=== PATIENT | female | born 1985 | race Caucasian/White ===

== ENCOUNTER → 2018-09-30 13:43 | Outpatient (CLI) | payer OTHER, SELFPAY ==
[2018-09-30 15:33] LABS: Absolute Lymphocyte Count 2.11 X10^3/ul (0.83-4.51); Absolute Neutrophil Count 7.9 X10^3/uL (2.0-7.7); Basophil# 0.04 X10^3/uL; Basophil% 0.4 % (0-1); Eosinophil# 0.49 X10^3/uL; Eosinophils% 4.4 % (0-5); Hematocrit 40.7 % (37-47); Hemoglobin 13.1 g/dl (12.0-15.0); Lymphocyte # 2.11 X10^3/ul (4.0); Lymphocyte % 18.8 % (19-41); Mean Corp Hgb Conc 32.2 g/gl (32-36); Mean Corpuscular Hgb 29.1 pg (27.0-32.0); Mean Corpuscular Volume 90.4 fL (81-99); Monocyte% 6.2 % (0-10); Neutrophil # 7.87 X10^3/uL (2.7-7.7); Neutrophil % 69.8 % (47-70); Platelet Count 365 K/mm3 (150-450); RBC Distribution Width CV 12.8 % (11.6-14.6); RBC Distribution Width SD 41.6 fl (35.1-43.9); White Blood Count 11.3 K/mm3 (4.4-11.0)
[2018-09-30 15:38] LABS: POSITIVE COUNT NO; POSITIVE DIFFERENTIAL NO; POSITIVE MORPHOLOGY NO
[2018-09-30 15:58] LABS: Vitamin D,25 Hydroxy 28.7 ng/mL (29.95-100.01)
[2018-09-30 16:00] LABS: Anion Gap 10 (5-15); BUN 14 mg/dL (7-18); BUN/Creat Ratio 16.6 RATIO (10-20); Calcium,Total 8.8 mg/dL (8.5-10.1); Chloride 102 mmol/L (98-107); Creatinine, Serum 0.84 mg/dL (0.55-1.02); EST Glomerular Filtration Rate 84 mL/min (>60); Est Glom Filt Rate - Afr Amer 101 mL/min (>60); Glucose 124 mg/dL (74-106); Potassium 3.8 mmol/L (3.5-5.1); Sodium Level 139 mmol/L (136-145); Thyroid Stim Hormone (TSH) 1.57 uIU/mL (0.358-3.74)
--- OUTSIDE RECORDS SUMMARY | 2018-11-25 13:07 | XMS RPT_ITS ---
:1985 Author Organization OHIP Care Team Providers Name Role Phone Toñito Levy Attending Unavailable Toñito Levy Primary Care Unavailable PROBLEMS PROBLEMS DATE TYPE CONDITION / CODE ATTENDING STATUS SOURCE 09/30/2018 Unknown R53.83 - Other Toñito Levy Active [place] fatigue / Community R53.83(ICD-10) Hospital Repository PROCEDURES PROCEDURES No Procedure Records FoundRESULTS RESULTS CBC W/DIFF, AUTOMATED Collected: 09/30/2018 Status: F Source: [place] 1:47 PM [facility] REPOSITORY TYPE CODE TESTS RESULT OUT OF RANGE REFERENCE UNITS LAB L100.1000 4.4-11.0 K/mm3 High WBC 11.3 LAB L100.1200 4.2-5.4 M/mm3 Normal RBC 4.50 LAB L100.1300 12.0-15.0 g/dl Normal HGB 13.1 LAB L100.1400 37-47 % Normal HCT 40.7 LAB L100.1500 81-99 fL Normal MCV 90.4 LAB L100.1600 27.0-32.0 pg Normal MCH 29.1 LAB L100.1700 32-36 g/gl Normal MCHC 32.2 LAB L100.1810 11.6-14.6 % Normal RDW CV 12.8 LAB L100.1820 35.1-43.9 fl Normal RDW SD 41.6 LAB L100.1900 150-450 K/mm3 Normal PLT 365 LAB L100.2000 6.2-12.0 fl Normal MPV 10.0 LAB L100.2100 47-70 % Normal NEUT% 69.8 LAB L100.2200 19-41 % Low LY% 18.8 LAB L100.2300 0-10 % Normal MONO% 6.2 LAB L100.2400 0-5 % Normal EO% 4.4 LAB L100.2500 0-1 % Normal BASO% 0.4 LAB L100.2550 0.0-0.9 % Normal IM GRAN % 0.400 Result Comment: IG% - Immature Granulocytes (promyelocytes, myelocytes and metamyelocytes) > 1% indicates that a LEFT SHIFT is Present. LAB L100.2620 2.0-7.7 X10 3/uL High Absolute Neut 7.9 LAB L100.2720 0.83-4.51 X10 3/ul Normal Absolute Lymph 2.11 Performed By: #### L100.0100, L506.1000, L500.2500, L501.9520 #### [facility] [address] [place], [place], [address] VITAMIN D,25 HYDROXY Collected: 09/30/2018 Status: F Source: [place] 1:47 PM [facility] REPOSITORY TYPE CODE TESTS RESULT OUT OF REFERENCE UNITS RANGE LAB L506.1000 29.95-100.01 ng/mL Low Vitamin D 28.7 25-OH Result Comment: Vitamin D 25(OH) Status Range Deficiency <20 ng/mL (50nmol/L) Insuffciency 20 - 30 ng/mL (50 - 75 nmol/L) Sufficiency 30 - 100 ng/mL (75 - 250 nmol/L) Toxicity >100 ng/mL (>250 nmol/L) Performed By: #### L100.0100, L506.1000, L500.2500, L501.9520 #### [facility] [address] [place], [place], [address] BASIC METABOLIC Collected: 09/30/2018 Status: F Source: [place] PROFILE (BMP) 1:47 PM [facility] REPOSITORY TYPE CODE TESTS RESULT OUT OF RANGE REFERENCE UNITS LAB L501.0100 74-106 mg/dL High GLU 124 Result Comment: Fasting Glucose result from 100 to 125 mg/dL suggests IMPAIRED HOMEOSTASIS per A.D.A. criteria. Please note revised GLUCOSE reference range effective 2017. LAB L501.1000 7-18 mg/dL Normal BUN 14 LAB L501.1100 0.55-1.02 mg/dL Normal CREAT,SERUM 0.84 Result Comment: The validity of the calculated GFR AND GFRAA in patients over 70 years has not been determined. Clinical correlation is essential. LAB L501.1110 >60 mL/min Normal EST GFR 84 Result Comment: Non- GFR Calc LAB L501.1115 >60 mL/min Normal EST GFR - AA 101 Result Comment: GFR Calc LAB L501.1300 10-20 RATIO Normal BUN/CRE 16.6 LAB L501.2200 8.5-10.1 mg/dL CA Normal 8.8 LAB L501.5300 136-145 mmol/L NA Normal 139 LAB L501.5600 3.5-5.1 mmol/L K Normal 3.8 LAB L501.5900 98-107 mmol/L CL Normal 102 LAB L501.6100 21.0-32.0 mmol/L Normal CO2 27.0 LAB L501.6200 5-15 Normal GAP 10 Performed By: #### L100.0100, L506.1000, L500.2500, L501.9520 #### [facility] [address] [facility] [place], [place], [address] THYROID STIM HORMONE Collected: 09/30/2018 Status: F Source: [place] (TSH) 1:47 PM [facility] REPOSITORY TYPE CODE TESTS RESULT OUT OF RANGE REFERENCE UNITS LAB L501.9520 0.358-3.74 uIU/mL Normal TSH 1.57 Performed By: #### L100.0100, L506.1000, L500.2500, L501.9520 #### [facility] [address] [facility] [place], [address] ALLERGIES ALLERGIES DATE TYPE / CODE NAME / CODE REACTION SEVERITY SOURCE 01/18/2017 Drug Sulfa Rash Unknown [facility] Allergy/4160 (Sulfonamide [facility] 12452(SNOMED Antibiotics)/ Repository CT) [id number](RX NORM) 01/18/2017 Drug amoxicillin/F Rash Unknown [facility] Allergy/4160 [id number](RXN [facility] 93749(SNOMED ORM) Repository CT) ENCOUNTERS ENCOUNTERS ADMIT/DISCHARGE ACCOUNT ADMITTING ENCOUNTER LOCATION SOURCE NUMBER CLASS 09/30/2018 [id number] Ambulatory [place] 1 [facility] ing:MFPLAB Repository PAYERS PAYERS ENCOUNTER GUARANTOR PAYER SUBSCRIBER SOURCE 09/30/2018 MICHAEL [id number] [place] Insurance:OLMANLTCAREDominic BLACKWOODPDOB: [place], [place] Number: [id number] [address]Zhi: (953) [id number] Repository [phone] () e Date:2446-07-48CL [address] [place] [phone]: 09/30/2018 Secondary NOT GIVENUNK [place] Insurance:SELF PAY [facility] Number: Effective Repository Date:2018-09-30
== END ==
PROVIDERS: Family Provider Family Medicine; PCP Family Medicine; Visit Provider Family Medicine
DX: R53.83 Other fatigue (principal)
CPT/HCPCS: 36415; 80048; 82306; 84443; 85025

== ENCOUNTER → 2019-02-22 | Outpatient (CLI) | payer OTHER, SELFPAY ==
[2017-01-18 06:11] VITALS: BMI 41.8
== END | disposition home or self-care (01) ==
PROVIDERS: Family Provider Family Medicine; PCP Family Medicine; Referring Provider Nurse Practitioner Family; Visit Provider Nurse Practitioner Family
DX: R39.15 Urgency of urination (principal)
CPT/HCPCS: 87086; 87088; 87186

== ENCOUNTER → 2019-06-26 | Outpatient (CLI) | payer OTHER, SELFPAY ==
[2019-06-26 08:00] VITALS: BMI 41.8
[2019-06-26 09:04] LABS: Thyroid Stim Hormone (TSH) 4.52 uIU/mL (0.358-3.74)
== END | disposition home or self-care (01) ==
LOC: PAVLAB 08:20
PROVIDERS: Family Provider Family Medicine; PCP Family Medicine; Referring Provider Nurse Practitioner Women's Health; Visit Provider Nurse Practitioner Women's Health
DX: N92.6 Irregular menstruation, unspecified (principal)
CPT/HCPCS: 36415; 84443

== ENCOUNTER → 2019-07-10 | Outpatient (CLI) | payer OTHER, SELFPAY ==
[2019-06-26 08:00] VITALS: BMI 41.8
[2019-07-10 10:36] LABS: T4 Free Direct 0.98 ng/dL (0.76-1.46); Thyroid Stim Hormone (TSH) 3.98 uIU/mL (0.358-3.74)
== END | disposition home or self-care (01) ==
LOC: MFPLAB 08:01
PROVIDERS: Family Provider Family Medicine; PCP Family Medicine; Referring Provider Family Medicine; Visit Provider Family Medicine
DX: R79.89 Other specified abnormal findings of blood chemistry (principal)
CPT/HCPCS: 36415; 84439; 84443

== ENCOUNTER → 2019-07-12 | Outpatient (CLI) | payer OTHER, SELFPAY ==
[2019-06-26 08:00] VITALS: BMI 41.8
--- NOTE | 2019-07-12 | IMM_PTH ---
PATIENT: MICHAEL SORENSON LOC: [facility] U#:[id number] AGE/SX: 33/F ROOM: RE07/12/[address]: Dr. Toñito Levy MD : 1985 BED: DIS: 07/12/2019 SPEC #: [id number] RECD: 07/13/19 11:38 STATUS: HANNAH REQ #: [id number] CHRIS: 07/12/19 00:[address]: Toñito Levy DEPT: IMMUNOHISTOCHEMISTRY RECD BY: Jill Rubio Tissues: Skin of leg, NOS Procedures: CD31 (initial) CD34 (add) FACTOR VIII (add) Pankeratin (add) PHYSICIAN & INSTITUTION [place] [address] SPECIMEN INFORMATION: Tissue Source: Skin lesion right thigh Clinical Info: Vascular nevus Specimen Number: [id number] CPT code: 46638, 35950 x3 METHODOLOGY: Deparaffinized sections of prefer/formalin-fixed tissue or PAP/DQ stained slides are incubated with monoclonal/polyclonal antibodies/oligonucleotide probes. Localization is made via biotin free immunoperoxidase method. Appropriate controls are performed and reacted as expected. Results on target cell population are indicated in the following table: RESULTS: ANTIBODY / CLONE RESULT CD31 (BORA/70A) positive Factor VIII (R Ag) positive CD34 (QBEnd-10) positive AE1-3 (AE1/AE3/PCK26) negative These tests were developed and their performance characteristics determined by [facility]. They may not have been cleared or approved by the U.S. Food and Drug Administration. The FDA has determined that such clearance or approval is not necessary. INTERPRETATION: Skin lesion of right thigh, biopsy: Consistent with capillary hemangioma. AM:jason 07/13/19
--- NOTE | 2019-07-12 | LES_PTH ---
PATIENT: MICHAEL SORENSON LOC: [facility] U#:[id number] AGE/SX: 33/F ROOM: RE07/12/[address]: Dr. Toñito Levy MD : 1985 BED: DIS: 07/12/2019 SPEC #: [id number] RECD: 07/12/19 11:22 STATUS: HANNAH ARNIE #: [id number] CHRIS: 07/12/19 00:[address]: Toñito Levy DEPT: SURGICAL PATHOLOGY RECD BY: Chintan Guidry Tissues: Skin of leg, NOS Procedures: Surgery Specimen Level IV HEADER OPERATION: Excision skin lesion right thigh PRE-OP DIAGNOSIS: Vascular nevus TISSUE SUBMITTED: Skin lesion right thigh MICROSCOPIC DIAGNOSIS Skin lesion of right thigh, biopsy: Capillary hemangioma. AM:jason 07/13/19 COMMENT Immunohistochemistry ([id number]) supports the above diagnosis. MICROSCOPIC DESCRIPTION Slides are reviewed. GROSS DESCRIPTION Received is one container labeled with the patient's name and not further designated. The specimen consists of a piece of cummins-white skin measuring 0.4 x 0.3 x 0.1 cm. A brownish lesion is noted on the surface measuring 0.3 x 0.2 cm. The entire specimen is submitted in one cassette. / SJ:rg 07/12/19 TC:5 [facility]: [id number]
== END | disposition home or self-care (01) ==
LOC: LABSPEC 11:20
PROVIDERS: Family Provider Family Medicine; PCP Family Medicine; Referring Provider Family Medicine; Visit Provider Family Medicine
DX: Q82.5 Congenital non-neoplastic nevus (principal)
CPT/HCPCS: 88305; 88341; 88342

== ENCOUNTER → 2019-10-04 13:23 | Outpatient (CLI) | payer OTHER, SELFPAY ==
[2019-10-04 08:19] VITALS: BMI 41.8
[2019-10-09 20:13] LABS: HPV APTIMA, High Risk Negative (Negative)
== END ==
PROVIDERS: Family Provider Family Medicine; PCP Family Medicine; Visit Provider Nurse Practitioner Women's Health
DX: Z12.4 Encounter for screening for malignant neoplasm of cervix (principal)
CPT/HCPCS: 87624; 88175; G0145

== ENCOUNTER → 2019-11-15 06:49 | Outpatient (CLI) | payer OTHER, SELFPAY ==
[2019-10-04 08:19] VITALS: BMI 41.8
[2019-11-15 08:17] LABS: T4 Total, Thyroxin 14.3 ug/dL (4.8-13.9); Thyroid Stim Hormone (TSH) 2.15 uIU/mL (0.358-3.74)
[2019-11-15 10:06] LABS: Progesterone Level 0.03 ng/mL (See Comment)
[2019-11-17 08:08] LABS: T4 Free Direct 1.35 ng/dL (0.76-1.46)
== END ==
PROVIDERS: Family Provider Family Medicine; PCP Family Medicine; Referring Provider Nurse Practitioner Women's Health; Visit Provider Nurse Practitioner Women's Health
DX: N92.6 Irregular menstruation, unspecified (principal); R79.89 Other specified abnormal findings of blood chemistry
CPT/HCPCS: 36415; 84144; 84436; 84439; 84443

== ENCOUNTER → 2019-12-28 | Outpatient (CLI) | payer OTHER, SELFPAY ==
[2019-10-04 08:19] VITALS: BMI 41.8
[2019-12-28 08:59] LABS: Progesterone Level < 0.21 ng/mL (See Comment)
== END | disposition home or self-care (01) ==
LOC: LAB 07:04
PROVIDERS: PCP Family Medicine; Referring Provider Nurse Practitioner Women's Health; Visit Provider Nurse Practitioner Women's Health
DX: N97.9 Female infertility, unspecified (principal)
CPT/HCPCS: 36415; 84144

== ENCOUNTER → 2020-02-07 | Outpatient (CLI) | payer OTHER, SELFPAY ==
[2020-01-01 11:28] VITALS: BMI 41.8
[2020-02-07 11:17] LABS: Progesterone Level 0.86 ng/mL (See Comment)
== END | disposition home or self-care (01) ==
LOC: LAB 10:36
PROVIDERS: PCP Family Medicine; Referring Provider Nurse Practitioner Women's Health; Visit Provider Nurse Practitioner Women's Health
DX: N97.0 Female infertility associated with anovulation (principal)
CPT/HCPCS: 36415; 84144

== ENCOUNTER → 2020-03-20 08:01 | Outpatient (CLI) | payer OTHER, SELFPAY ==
[2020-01-01 11:28] VITALS: BMI 41.8
[2020-03-20 09:10] LABS: Progesterone Level 11.21 ng/mL (See Comment)
== END ==
PROVIDERS: PCP Family Medicine; Referring Provider Nurse Practitioner Women's Health; Visit Provider Nurse Practitioner Women's Health
DX: N92.6 Irregular menstruation, unspecified (principal)
CPT/HCPCS: 36415; 84144

== ENCOUNTER → 2020-04-15 07:54 | Outpatient (CLI) | payer OTHER, SELFPAY ==
[2020-01-01 11:28] VITALS: BMI 41.8
[2020-04-15 08:55] LABS: Progesterone Level 19.17 ng/mL (See Comment)
== END ==
PROVIDERS: PCP Family Medicine; Referring Provider Nurse Practitioner Women's Health; Visit Provider Nurse Practitioner Women's Health
DX: N97.0 Female infertility associated with anovulation (principal)
CPT/HCPCS: 36415; 84144

== ENCOUNTER → 2020-04-23 | Outpatient (CLI) | payer OTHER, SELFPAY ==
[2020-01-01 11:28] VITALS: BMI 41.8
[2020-04-23 10:20] LABS: Thyroid Stim Hormone (TSH) 1.92 uIU/mL (0.358-3.74)
== END | disposition home or self-care (01) ==
LOC: MFPLAB 08:23
PROVIDERS: PCP Family Medicine; Referring Provider Family Medicine; Visit Provider Family Medicine
DX: E03.9 Hypothyroidism, unspecified (principal)
CPT/HCPCS: 36415; 84443

== ENCOUNTER → 2020-07-04 | Outpatient (CLI) | payer OTHER, SELFPAY ==
[2020-01-01 11:28] VITALS: BMI 41.8
[2020-07-04 09:31] LABS: Prolactin 8.8 ng/mL; T4 Free Direct 0.91 ng/dL (0.76-1.46); Thyroid Stim Hormone (TSH) 1.44 uIU/mL (0.358-3.74)
[2020-07-04 09:41] LABS: Hemoglobin A1c 5.9 % (3.8-5.6)
[2020-07-04 09:43] LABS: Rubella IgG 166.9 IU/mL
[2020-07-05 20:07] LABS: DHEA Sulfate 66.3 ug/dL (84.8-378.0); Hemoglobin Fraction A 97.6 % (96.4-98.8); Hemoglobin Fraction A2 2.4 % (1.8-3.2); Hemoglobin Fraction C 0 % (0.0); Hemoglobin Fraction F 0 % (0.0-2.0); Hemoglobin Fraction S 0 % (0.0); Hemoglobin Solubility,Panel Negative (Negative)
[2020-07-05 20:28] LABS: V-Zoster IgG (Immunity) 1415 index (Immune >165)
[2020-07-08 08:01] LABS: 17-Hydroxyprogesterone 18 ng/dL (.)
== END | disposition home or self-care (01) ==
LOC: LAB 08:06
PROVIDERS: PCP Family Medicine; Referring Provider Psychiatry & Neurology Geriatric Psychiatry; Visit Provider Psychiatry & Neurology Geriatric Psychiatry
DX: E28.1 Androgen excess (principal)
CPT/HCPCS: 36415; 82627; 83021; 83036; 83498; 84146; 84403; 84439; 84443; 85660; 86762; 86787; 86850; 86900; 86901; 82626

== ENCOUNTER → 2020-07-18 | Outpatient (CLI) | payer OTHER, SELFPAY ==
[2020-01-01 11:28] VITALS: BMI 41.8
[2020-07-18 08:21] LABS: Glucose 75GTT - 30 minutes 175 mg/dL (100-160)
[2020-07-18 08:27] LABS: Glucose 75GTT - Fasting 121 mg/dL (70-99)
[2020-07-18 08:30] LABS: AST(SGOT) 36 U/L (15-37); Alanine Aminotransfer ALT/SGPT 69 U/L (13-56); Albumin, Serum 3.4 g/dL (3.2-5.0); Alkaline Phosphatase 125 U/L (45-117); Anion Gap 8 (5-15); BUN 15 mg/dL (7-18); BUN/Creat Ratio 20.1 RATIO (10-20); Bilirubin, Direct 0.08 mg/dL (0.00-0.30); Chloride 106 mmol/L (98-107); Creatinine, Serum 0.75 mg/dL (0.55-1.02); EST Glomerular Filtration Rate 95 mL/min (>60); Est Glom Filt Rate - Afr Amer 115 mL/min (>60); Globulin 4.2 g/dL (2.2-4.2); Glucose 120 mg/dL (74-106); Potassium 3.9 mmol/L (3.5-5.1); Protein, Total 7.6 g/dL (6.4-8.2); Sodium Level 140 mmol/L (136-145)
[2020-07-18 09:22] LABS: Glucose 75GTT - 60 minutes 242 mg/dL (100-160)
[2020-07-18 09:37] LABS: Insulin 42.8 mU/L (2.6-37.6)
[2020-07-18 09:40] LABS: Glucose 75GTT - 120 minutes 231 mg/dL (70-140)
== END | disposition home or self-care (01) ==
PROVIDERS: PCP Family Medicine; Referring Provider Psychiatry & Neurology Geriatric Psychiatry; Visit Provider Psychiatry & Neurology Geriatric Psychiatry
DX: E16.8 Other specified disorders of pancreatic internal secretion (principal)
CPT/HCPCS: 36415; 80048; 80076; 82951; 82952; 83525; 84100

== ENCOUNTER → 2020-08-06 | Outpatient (CLI) | payer OTHER, SELFPAY ==
[2020-01-01 11:28] VITALS: BMI 41.8
== END | disposition home or self-care (01) ==
PROVIDERS: PCP Family Medicine; Referring Provider Nurse Practitioner Adult Health; Visit Provider Nurse Practitioner Adult Health
DX: Z20.828 Contact with and (suspected) exposure to other viral communicable diseases (principal)
CPT/HCPCS: 87635; U0003

== ENCOUNTER → 2021-01-13 13:58 | Outpatient (CLI) | payer OTHER, SELFPAY ==
[2021-01-13 12:58] VITALS: BMI 43.9
[2021-01-13 15:28] LABS: Glucose Challenge Gest 1H 50g 124 mg/dL (70-140)
[2021-01-13 17:34] LABS: Amphetamine Urine VISTA NEGATIVE (<1000 ng/mL); Barbiturate Urine VISTA NEGATIVE (< 200 ng/mL); Benzodiazepine Urine VISTA NEGATIVE (< 200 ng/mL); Cocaine Urine VISTA NEGATIVE (< 300 ng/mL); Ecstacy Urine VISTA NEGATIVE (< 500 ng/mL); Methadone Urine VISTA NEGATIVE (< 300 ng/mL); PCP Urine VISTA NEGATIVE (< 25 ng/mL); THC Urine VISTA POSITIVE (< 50 ng/mL); Vista UDS pH Range 5
[2021-01-16 03:07] LABS: Chlamydia By Nucleic Acid AMP Negative (Negative)
[2021-01-16 07:29] LABS: Gonococcus By Nucleic Acid AMP Negative (Negative)
== END ==
PROVIDERS: PCP Family Medicine; Referring Provider Obstetrics & Gynecology; Visit Provider Obstetrics & Gynecology
DX: O99.280 Endocrine, nutritional and metabolic diseases complicating pregnancy, unspecified trimester (principal); E07.9 Disorder of thyroid, unspecified; Z3A.00 Weeks of gestation of pregnancy not specified
CPT/HCPCS: 36415; 80307; 82950; 84443; 86850; 86900; 86901; 87491; 87591

== ENCOUNTER → 2021-04-15 | Outpatient (CLI) | payer OTHER, SELFPAY ==
[2021-04-15 11:27] VITALS: BMI 44.8
[2021-04-15 13:50] LABS: Amphetamine Urine VISTA NEGATIVE (<1000 ng/mL); Barbiturate Urine VISTA NEGATIVE (< 200 ng/mL); Benzodiazepine Urine VISTA NEGATIVE (< 200 ng/mL); Cocaine Urine VISTA NEGATIVE (< 300 ng/mL); Ecstacy Urine VISTA NEGATIVE (< 500 ng/mL); Methadone Urine VISTA NEGATIVE (< 300 ng/mL); PCP Urine VISTA NEGATIVE (< 25 ng/mL); THC Urine VISTA POSITIVE (< 50 ng/mL); Vista UDS pH Range 7
== END | disposition home or self-care (01) ==
LOC: LABSPEC 13:06
PROVIDERS: PCP Family Medicine; Referring Provider Nurse Practitioner Women's Health; Visit Provider Nurse Practitioner Women's Health
DX: O99.322 Drug use complicating pregnancy, second trimester (principal); F12.90 Cannabis use, unspecified, uncomplicated; Z3A.00 Weeks of gestation of pregnancy not specified
CPT/HCPCS: 80307

== ENCOUNTER → 2021-05-09 10:17 | Outpatient (CLI) | payer OTHER, SELFPAY ==
[2021-04-15 11:27] VITALS: BMI 44.8
[2021-05-09 10:43] LABS: Absolute Lymphocyte Count 1.45 X10^3/uL (0.83-4.51); Absolute Neutrophil Count 10.6 X10^3/uL (2.0-7.7); Basophil# 0.02 X10^3/uL; Basophil% 0.2 % (0-1); Eosinophils% 1.6 % (0-5); Hematocrit 32.4 % (37-47); Hemoglobin 10.4 g/dL (12.0-15.0); Lymphocyte # 1.45 X10^3/ul (0.83-4.51); Lymphocyte % 11.3 % (19-41); Mean Corp Hgb Conc 32.1 g/dL (32-36); Mean Corpuscular Hgb 28.2 pg (27.0-32.0); Mean Corpuscular Volume 87.8 fL (81-99); Mean Platelet Vol. 9.6 fl (6.2-12.0); Monocyte# 0.49 X10^3/uL; Monocyte% 3.8 % (0-10); NRBC Flagged by Analyzer 0 % (0-5); Neutrophil # 10.61 X10^3/uL (2.7-7.7); Neutrophil % 82.5 % (47-70); Platelet Count 336 K/mm3 (150-450); RBC Distribution Width CV 13.2 % (11.6-14.6); RBC Distribution Width SD 41.8 fl (35.1-43.9); Red Blood Count 3.69 M/mm3 (4.2-5.4); White Blood Count 12.9 K/mm3 (4.4-11.0)
[2021-05-09 11:07] LABS: Glucose Challenge Gest 1H 50g 176 mg/dL (70-140); Thyroid Stim Hormone (TSH) 1.28 uIU/mL (0.358-3.74)
== END ==
PROVIDERS: PCP Family Medicine; Referring Provider Nurse Practitioner Women's Health; Visit Provider Nurse Practitioner Women's Health
DX: O99.282 Endocrine, nutritional and metabolic diseases complicating pregnancy, second trimester (principal); E03.9 Hypothyroidism, unspecified; Z3A.00 Weeks of gestation of pregnancy not specified
CPT/HCPCS: 36415; 82950; 84443; 85025

== ENCOUNTER 2021-05-20 14:30 | Outpatient (RCR) | payer OTHER, SELFPAY ==
[2021-05-09 10:53] VITALS: BMI 44.8
== END 2021-05-31 23:59 ==
LOC: DC 14:30
PROVIDERS: PCP Family Medicine; Visit Provider Obstetrics & Gynecology
DX: O24.419 Gestational diabetes mellitus in pregnancy, unspecified control (principal)
CPT/HCPCS: 97802; G0108

== ENCOUNTER → 2021-06-27 | Outpatient (CLI) | payer OTHER, SELFPAY | END | disposition home or self-care (01) | PROVIDERS: PCP Family Medicine; Visit Provider Obstetrics & Gynecology | DX: O24.419 Gestational diabetes mellitus in pregnancy, unspecified control (principal); O99.212 Obesity complicating pregnancy, second trimester; Z3A.00 Weeks of gestation of pregnancy not specified | CPT/HCPCS: 87081 ==

== ENCOUNTER → 2021-07-15 08:58 | Outpatient (CLI) | payer OTHER, SELFPAY | PROVIDERS: PCP Family Medicine; Visit Provider Obstetrics & Gynecology | DX: Z34.90 Encounter for supervision of normal pregnancy, unspecified, unspecified trimester (principal) | CPT/HCPCS: 87635; C9803; U0005; U0003 ==

== ENCOUNTER 2021-07-18 06:45 | Inpatient (IN) | payer OTHER, SELFPAY ==
[2021-07-18] VITALS (29 sets, daily range): BP systolic 99–152; BP diastolic 54–89; PULSE 73–102; TEMP 36–37.2; O2SAT 96–100; BMI 41.3
[2021-07-18 07:40] LABS: Bedside Glucose 95 mg/dL (70-110)
[2021-07-18] MEDS: Lactated Ringers 1,000 ML 50 ML IV (08:15)
[2021-07-18 08:28] LABS: Basophil# 0.03 X10^3/uL; Basophil% 0.3 % (0-1); Eosinophil# 0.15 X10^3/uL; Eosinophils% 1.4 % (0-5); Hematocrit 34.1 % (37-47); Hemoglobin 10.9 g/dL (12.0-15.0); Lymphocyte % 15.2 % (19-41); Mean Corpuscular Volume 84.6 fL (81-99); Mean Platelet Vol. 11.5 fl (6.2-12.0); Monocyte# 0.74 X10^3/uL; NRBC Flagged by Analyzer 0 % (0-5); Neutrophil # 7.96 X10^3/uL (2.7-7.7); Neutrophil % 75.6 % (47-70); Platelet Count 240 K/mm3 (150-450); RBC Distribution Width CV 13.7 % (11.6-14.6); RBC Distribution Width SD 42.4 fl (35.1-43.9); Red Blood Count 4.03 M/mm3 (4.2-5.4); White Blood Count 10.5 K/mm3 (4.4-11.0)
--- NOTE | 2021-07-18 08:45 | HP.PCM.OB_ITS ---
HPI - General General Date of Admission: 07/18/21 HPI Narrative MICHAEL SORENSON, is a 35 F at 39/1 who presents for induction of labor for gestational diabetes Maternal Data Information DAILY Calculator Estimated Delivery Date Method Current WG Current Estimate 07/24/21 Manual 39w 1d PFSH [facility] Medical History Anxiety Low-lying placenta in second trimester Placental abnormality Thyroid disorder Home Medications pantoprazole 20 mg PO DAILY 01/18/17 [History Last Taken 07/18/21] escitalopram oxalate 20 mg tablet 20 mg PO DAILY 06/26/19 [History Last Taken 07/18/21] levothyroxine 50 mcg capsule 50 mcg PO DAILY 10/04/19 [History Last Taken 07/18/21] metformin 500 mg tablet 500 mg PO DAILY 01/13/21 [History Last Taken 07/18/21] vitamin#30 30 mg iron-10 mg iron-folic acid 1 mg-omg3 capsule 1 cap PO DAILY 01/13/21 [History Last Taken 07/18/21] blood sugar diagnostic #10 ea 05/20/21 [History Last Taken Unknown] blood-glucose meter #1 ea 05/20/21 [History Last Taken Unknown] lancets 30 gauge #100 ea 05/20/21 [History Last Taken Unknown] Allergy/AdvReac Type Severity Reaction Status Date / Time amoxicillin Allergy Rash Verified 07/15/21 08:27 Sulfa (Sulfonamide Allergy Rash Verified 07/15/21 08:27 Antibiotics) Family History Grandfather Myocardial infarction Uncle Leukemia Surgical History History of tonsillectomy Social History Smoking Status: Former smoker alcohol intake: never substance use type: does not use caffeine: Yes what type of physical activity do you participate in: none seatbelt use: always do you feel safe at home: Yes additional social history: [employer] Patient work at [employer] History 1 Elective abortions Hx Para 0 Spontaneous abortions Hx # Term Pregnancies Ectopic pregnancies Hx # Pregnancies Multiple births # of living children Visit Details Expected Delivery Route/Plan Labor Preferences- CB/BF classes: [] labor support person: Sandy labor intervention preferences: open to standard interventions pain management options preferred: epidural cut cord/dad catch: maybe cord - very squeamish! : [] PP control planned: [] discussed possible routes of delivery and associated risks: discussed possible delivery modalities and possible indications for each including R/B/A of , VAVD, FAVD, and CS. questions answered. special requests: [] Plans covid status: flu vaccine: tdap vaccine: [] rhogam: [] LARC form signed: [] Problem list reviewed and updated with the most current plan of care details and appropriate orders placed. Relevant counseling for the gestational age provided. Continue routine care and follow up unless otherwise noted in visit notes/problem list details OB Flowsheet Initial Weight: Not Recorded Date -?-?-?-?-?-?-?-?-?-?-?-?- EGA Weight BP Urine Prot -?-?-?-?-?-?-?-?-?-?-?-?- Glucose FHR FuHt Pres Dilation -?-?-?-?-?--?-?-?-?-?-?-?- Effaced St Visit Note 01/13/21 -?-?-?-?-?-?-?-?-?-?-?-?- 12w 4d 256 lb 120/82 -?-?-?-?-?-?-?-?-?-?-?-?- 168 -?-?-?-?-?-?-?-?-?-?-?-?- GP - INÉS from RG I. Records reviewed - conceived with letrozole and IUI 02/12/21 -?-?-?-?-?-?-?-?-?-?-?-?- 16w 6d 261 lb 130/70 -?-?-?-?-?-?-?-?-?-?-?-?- 150 -?-?-?-?-?-?-?-?-?-?-?-?- GP - no cramping or bleeding. Anatomy scan ordered. Passed early glucose. PRR of all [facility] records. 03/12/21 -?-?-?-?-?-?-?-?-?-?-?-?- 20w 6d 262 lb 8 oz 128/80 Nega tive -?-?-?-?-?-?-?-?-?-?-?-?- Negative 155 -?-?-?-?-?-?-?-?-?-?-?-?- GP - no cramping or bleeding. Feeling flutters, but no big movements. Anatomy scan next week. 04/15/21 -?-?-?-?--?-?-?-?-?-?-?-?- 25w 5d 267 lb 8 oz 134/62 Nega tive -?-?-?-?-?-?-?-?-?-?-?-?- Negative 146 26 -?-?-?-?-?-?-?-?-?-?-?-?- MH-No Vb, LOF. G ood FM. US to check placenta 05/01. 05/09/21 -?-?-?-?-?-?-?-?-?-?-?-?- 29w 1d 266 lb 120/68 Negative -?-?-?-?-?-?-?-?-?-?-?-?- Negative 140 31 -?-?-?-?-?-?-?-?-?-?-?-?- SM- SM- no vb lof good fm no reg ular ctx. discussed elevated 1 hr GCT today and has been on metformin BID, recommend endocrine consult, begin testing and diabetic diet 05/22/21 -?-?-?-?-?-?-?-?-?-?-?-?- 31w 0d 259 lb Negative -?-?-?-?-?-?-?-?-?-?-?-?- Negative 145 32 -?-?-?-?-?-?-?-?-?-?-?-?- SM- no vb lof go od fm no regular ctx. started insulin with dr patel 06/02/21 -?-?-?-?-?-?-?-?-?-?-?-?- 32w 4d 256 lb 104/70 Negative -?-?-?-?-?-?-?-?-?-?-?-?- Negative 138 -?-?-?-?-?-?-?-?-?-?-?-?- -NSt only reac tive 06/05/21 -?-?-?-?-?-?-?-?-?-?-?-?- 33w 0d 100/74 Negative -?-?-?-?-?-?-?-?-?-?-?-?- Negative -?-?-?-?-?-?-?-?-?-?-?-?- 06/10/21 -?-?-?-?-?-?-?-?-?-?-?-?- 33w 5d 255 lb 104/72 Negative -?-?-?-?-?-?-?-?-?-?-?-?- Negative 140 -?-?-?-?-?-?-?-?-?-?-?-?- -NST only-reac tive 06/13/21 -?-?-?-?-?-?-?-?-?-?-?-?- 34w 1d 255 lb Negative -?-?-?-?-?-?-?-?-?-?-?-?- Negative 140 34 -?-?-?-?-?-?-?-?-?-?-?-?- GP - no LOF, VB, dFM, ctx. Denies complaints. BGTs controlled on insulin. NST reactive 06/16/21 -?-?-?-?-?-?-?-?-?-?-?-?- 34w 4d 255 lb 102/80 Negative -?-?-?-?-?-?-?-?-?-?-?-?- Negative 145 -?-?-?-?-?-?-?-?-?-?-?-?- -NST only reac tive 06/20/21 -?-?-?-?-?-?-?-?-?-?-?-?- 35w 1d 251 lb 8 oz 120/78 Nega tive -?-?-?-?-?-?-?-?-?-?-?-?- Negative 140 35 -?-?-?-?-?-?-?-?-?-?-?-?- GP - no LOF, VB, DFM, ctx. Doing well. GBS next visit. 06/24/21 -?-?-?-?-?-?-?-?-?-?-?-?- 35w 5d 250 lb 128/82 Negative -?-?-?-?-?-?-?-?-?-?-?-?- Negative 150 -?-?-?-?-?-?-?-?-?-?-?-?- MH-NST only reac tive 06/27/21 -?-?-?-?-?-?-?-?-?-?-?-?- 36w 1d 249 lb 120/72 Negative -?-?-?-?-?-?-?-?-?-?-?-?- Negative 130 36 Cephalic 0 -?-?-?-?-?-?-?-?-?-?-?-?- GP - no LOF, VB, DFM, ctx. GBS done today. Discussed labor preferences and routes of delivery. 07/02/21 -?-?-?-?-?-?-?-?-?-?-?-?- 36w 6d 247 lb 8 oz Negative -?-?-?-?-?-?-?-?-?-?-?-?- Negative 140 37 Cephalic 0 -?-?-?-?-?-?-?-?-?-?-?-?- GP - no LOF, VB, dFM, ctx. Denies complaints. 07/04/21 -?-?-?-?-?-?-?-?-?-?-?-?- 37w 1d 246 lb 122/74 -?-?-?-?-?-?-?-?-?-?-?-?- 140 -?-?-?-?-?-?-?-?-?-?-?-?- GP - NST only. R eactive 07/08/21 -?-?-?-?-?-?-?-?-?-?-?-?- 37w 5d 112/82 Negative -?-?-?-?-?-?-?-?-?-?-?-?- Negative 150 -?-?-?-?-?-?-?-?-?-?-?-?- MH-NST only reac tive 07/11/21 -?-?-?-?-?-?-?-?-?-?-?-?- 38w 1d 246 lb 118/82 Negative -?-?-?-?-?-?-?-?-?-?-?-?- Negative 140 0.5 -?-?-?-?-?-?-?-?-?-?-?-?- Sm- no vb lof go od fm no reuglar ctx plan IOL 07/15/21 -?-?-?-?-?-?-?-?-?-?-?-?- 38w 5d 244 lb -?-?-?-?-?-?-?-?-?-?-?-?- -?-?-?-?-?-?-?-?-?-?-?-?- 07/18/21 -?-?-?-?-?-?-?-?-?-?-?-?- 39w 1d 240 lb 15.444 oz 117/78 -?-?-?-?-?-?-?-?-?-?-?-?- -?-?-?-?-?-?-?-?-?-?-?-?- NST FHR Rate Baby A Baseline: 130 Variability:: Moderate Accelerations:: 15 x 15 Decelerations:: None NST Reactive:: Yes FHR Category:: Category I Uterine Activity:: none ROS Eyes Eyes: Reports systems reviewed and no addt'l complaints, except as documented ENT HEENT: Reports systems reviewed and no addt'l complaints, except as documented Cardiovascular Cardiovascular: Reports systems reviewed and no addt'l complaints, except as documented Respiratory/Chest Respiratory/Chest: Reports systems reviewed and no addt'l complaints, except as documented Gastrointestinal Gastrointestinal: Reports systems reviewed and no addt'l complaints, except as documented Genitourinary Genitourinary: Reports systems reviewed and no addt'l complaints, except as documented Musculoskeletal Musculoskeletal: Reports systems reviewed and no addt'l complaints, except as documented Integumentary Integumentary: Reports systems reviewed and no addt'l complaints, except as documented Neurologic Neurologic: Reports systems reviewed and no addt'l complaints, except as documented Psychiatric Psychiatric: Reports systems reviewed and no addt'l complaints, except as documented Endocrine Endocrinology: Reports systems reviewed and no addt'l complaints, except as documented Hematologic/Lymphatic Hematologic/Lymphatic: Reports systems reviewed and no addt'l complaints, except as documented Allergic/Immunologic Allergic/Immunologic: Reports systems reviewed and no addt'l complaints, except as documented Vital Signs Vital Signs Vital Signs: 07/18/21 07:34 07/18/21 07:35 Temperature 97.6 F L Temperature Source Temporal Pulse Rate 82 Blood Pressure 117/78 BP Systolic 117 BP Diastolic 78 Pulse Ox 97 Weight Weight: 240 lb 15.444 oz Body Mass Index (BMI) 41.3 Physical Exam Const alert, oriented x3, no apparent distress, average body habitus, healthy appearing and well nourished HEENT normocephalic and moist oral mucous membranes Head and Scalp: atraumatic Eyes PERRL and EOMs intact bilaterally Neck full ROM Resp normal respiratory effort, no retractions and no use of accessory muscles Cardio regular rate and regular rhythm GI soft to palpation, non-tender and non-distended Extremity normal to inspection and full ROM Skin no rashes or lesions noted Neuro no focal motor deficits and no sensory deficits noted Psych mental status grossly normal, affect normal, speech normal and activity/motor behavior normal Labs Labs Labs: Blood Type O POSITIVE Antibody Screen NEGATIVE Hct 34.1 % (37-47) L Hgb 10.9 g/dL (12.0-15.0) L Pap Smear Negative VZV IgG Antibody 1415 index (Immune >165) Rubella IgG Antibody 166.9 IU/mL Neisseria gonorrhoeae DNA (TONYA) Negative (Negative) Glucose 1 Hr 50 gm 176 mg/dL (70-140) H Assessment & Plan (1) Gestational diabetes mellitus (GDM): QUALIFIERS: Gestational diabetes mellitus control: unspecified Trimester: third trimester Qualified Code(s): O24.419 - Gestational diabetes mellitus in , unspecified control COMMENT: insulin and metformin 1000mg BID prior to by [facility]. (2) Marijuana use: COMMENT: Positive NOB labs. Random tox screen. Positive 04/15 (3) Hypothyroid: QUALIFIERS: Hypothyroidism type: unspecified Qualified Code(s): E03.9 - Hypothyroidism, unspecified COMMENT: On synthroid. TSH q trimester. (4) Obesity affecting : QUALIFIERS: Trimester: second trimester Qualified Code(s): O99.212 - Obesity complicating , second trimester COMMENT: 1h GCT done at [facility]. Discussed NSTs in 3rd trimester. growth @ 4 wks05/29 growth nl (5) Supervision of normal : QUALIFIERS: Normal : normal first Trimester: second trimester Qualified Code(s): Z34.02 - Encounter for supervision of normal first , second trimester COMMENT: PRR DAILY: 07/24/21 Boy! Lamont Spouse: Sandy (6) with history of infertility: QUALIFIERS: Trimester: second trimester Qualified Code(s): O09.02 - Supervision of with history of infertility, second trimester COMMENT: Letrozole and IUI, metformin prescribed by [facility]. (7) : QUALIFIERS: Weeks of gestation: 38 weeks Qualified Code(s): Z3A.38 - 38 weeks gestation of COMMENT: NIPT and carrier nl with [facility], anatomy repeat CSP views 2 wks, repeat nl; IoL scheduled for 07/17 at 0700 GP; GBS NEG (8) Body mass index (BMI) of 40.1 to 44.9 in adult: (9) Encounter for induction of labor: PLAN: Patient presents IOL, plan management for with kate bulb /cytotec. Pain management: plans epidural. GBS negative. Management of any complications: none I have reviewed the [facility] and made any clinically relevant updates.
[2021-07-18] MEDS: 0.9% Normal Saline 250 ML IV.SOLN. IV (08:58)
[2021-07-18 09:05] LABS: Bedside Glucose 79 mg/dL (70-110)
[2021-07-18] MEDS: miSOPROStol 25 MCG TABLET PO (09:09)
[2021-07-18 13:21] LABS: Bedside Glucose 68 mg/dL (70-110)
[2021-07-18 14:18] LABS: Amphetamine Urine VISTA NEGATIVE (<1000 ng/mL); Barbiturate Urine VISTA NEGATIVE (< 200 ng/mL); Benzodiazepine Urine VISTA NEGATIVE (< 200 ng/mL); Cocaine Urine VISTA NEGATIVE (< 300 ng/mL); Ecstacy Urine VISTA NEGATIVE (< 500 ng/mL); Methadone Urine VISTA NEGATIVE (< 300 ng/mL); PCP Urine VISTA NEGATIVE (< 25 ng/mL); THC Urine VISTA POSITIVE (< 50 ng/mL); Vista UDS pH Range 6
[2021-07-18] MEDS: Oxytocin 30 units/NS 500 ml 30 UNITS/500 ML IV.SOLN IV (14:35)
[2021-07-18] MEDS: Lactated Ringers 500 ML 999 ML IV ×2 (16:48→23:10)
[2021-07-18 17:11] LABS: Bedside Glucose 82 mg/dL (70-110)
[2021-07-18] MEDS: fentaNYL-bupivacaine (epidural) 100 ML BAG EPIDURAL ×2 (17:50→21:57)
[2021-07-18] MEDS: Ondansetron 4 MG/2 ML Vial IV (20:48)
[2021-07-18 22:16] LABS: Bedside Glucose 76 mg/dL (70-110)
[2021-07-18] MEDS: Lactated Ringers 1,000 ML 200 ML IV (23:44)
[2021-07-19] VITALS (55 sets, daily range): BP systolic 62–137; BP diastolic 30–76; PULSE 71–126; RESP 14–16; TEMP 36.1–37.4; O2SAT 82–100
[2021-07-19 00:05] LABS: Bedside Glucose 81 mg/dL (70-110)
[2021-07-19 01:16] LABS: Bedside Glucose 79 mg/dL (70-110)
[2021-07-19] MEDS: Ondansetron 4 MG/2 ML Vial IV ×2 (02:11→06:22)
[2021-07-19] MEDS: fentaNYL-bupivacaine (epidural) 100 ML BAG EPIDURAL (03:05)
[2021-07-19 03:16] LABS: Bedside Glucose 75 mg/dL (70-110)
[2021-07-19 03:16] LABS: Bedside Glucose 79 mg/dL (70-110)
[2021-07-19 05:41] LABS: Bedside Glucose 92 mg/dL (70-110)
[2021-07-19 05:41] LABS: Bedside Glucose 89 mg/dL (70-110)
[2021-07-19 06:47] LABS: Bedside Glucose 91 mg/dL (70-110)
[2021-07-19] MEDS: Oxytocin 30 units/NS 500 ml 30 UNITS/500 ML IV.SOLN 334 UNITS IV (06:58)
--- NOTE | 2021-07-19 07:11 | NURSING ---
indwelling urinary catheter removed by Dr. Aaron at 0645
--- NOTE | 2021-07-19 07:35 | OP.PCM_ITS ---
Assessment & Plan (1) Forceps delivery with baby delivered: COMMENT: GP IOL GDM FAVD 07/19 Jose-Lamont (2) Encounter for induction of labor: (3) Gestational diabetes mellitus (GDM): QUALIFIERS: Gestational diabetes mellitus control: unspecified Trimester: third trimester Qualified Code(s): O24.419 - Gestational diabetes mellitus in , unspecified control COMMENT: insulin and metformin 1000mg BID prior to by [facility]. (4) Marijuana use: COMMENT: Positive NOB labs. Random tox screen. Positive 04/15 (5) Hypothyroid: QUALIFIERS: Hypothyroidism type: unspecified Qualified Code(s): E03.9 - Hypothyroidism, unspecified COMMENT: On synthroid. TSH q trimester. (6) Obesity affecting : QUALIFIERS: Trimester: second trimester Qualified Code(s): O99.212 - Obesity complicating , second trimester COMMENT: 1h GCT done at [facility]. Discussed NSTs in 3rd trimester. growth @ 4 wks05/29 growth nl (7) Supervision of normal : QUALIFIERS: Normal : normal first Trimester: second trimester Qualified Code(s): Z34.02 - Encounter for supervision of normal first , second trimester COMMENT: PRR DAILY: 07/24/21 Jannet Miguel Spouse: Sandy (8) with history of infertility: QUALIFIERS: Trimester: second trimester Qualified Code(s): O09.02 - Supervision of with history of infertility, second trimester COMMENT: Letrozole and IUI, metformin prescribed by [facility]. (9) : QUALIFIERS: Weeks of gestation: 38 weeks Qualified Code(s): Z3A.38 - 38 weeks gestation of COMMENT: NIPT and carrier nl with [facility], anatomy repeat CSP views 2 wks, repeat nl; IoL scheduled for 07/17 at 0700 GP; GBS NEG (10) Body mass index (BMI) of 40.1 to 44.9 in adult: Maternal Data Information DAILY Calculator Estimated Delivery Date Method Current WG Current Estimate 07/24/21 Manual 39w 2d Vaginal Delivery Maternal Presentation Maternal Presentation: Medically Indicated Induction Maternal Presentation: 35-year-old G1, P0 at 39 weeks gestation admitted for induction of labor for gestational diabetes. She was induced with Peres bulb and Cytotec followed by Pitocin. Type of Induction: Pitocin, Peres Bulb and Cytotec Medical Reason for Induction: Maternal Medical Condition: list: (Gestational diabetes) Operative Information Date of Procedure: 07/19/21 Pre-Operative Diagnosis: Term , gestational diabetes, maternal exhaustion Post-Operative Diagnosis: Same Surgery / Procedure Performed: Forceps Assisted Vaginal Delivery Type of Anesthesia: Epidural Drain: Peres to straight drain Estimated Blood Loss: 300 cc Findings Description of Procedure: Patient was pushing with deep variable decelerations with pushing. Recommendation was made to proceed with a forceps assisted vaginal delivery. The maternal bladder had just been drained and Peres catheter was removed. Additional help was called to the room. Senior Administrative Support was called to the room. A step up was in the room. Anesthesia level was found to be adequate. Kenny-Celeste forceps were applied without difficulty and placement was noted to be correct. The head delivered with 3 contractions 3 pulls. The head delivered in the CORNELIUS presentation. The head was delivered atraumatically and no nuchal cord was noted. The anterior and posterior shoulders delivered without complication followed by the rest of the infant and the was placed on the maternal abdomen. The infant did not cry immediately therefore the cord was immediately clamped and cut and the was taken to the warmer for evaluation by the rodding anode worker. The placenta delivered spontaneously immediately following it was noted to be intact with three-vessel cord. The perineum and vagina were inspected and bilateral sulcal lacerations and a midline second-degree perineal laceration were noted and repaired in the standard fashion using 2-0 Vicryl and 3-0 Vicryl Rapide suture. EBL was 300 cc. Patient and infant tolerated delivery well. Presentation: Vertex and CORNELIUS Amniotic Membrane Rupture Type: Artificial Amniotic Fluid Description: Lightly stained meconium Placental Delivery Description: Spontaneous Placenta Disposition: [facility] Cord Vessel Description: 3 Vessels Cord Entanglement: None A Gender: Male Delayed Cord Clamping: No Post Vaginal Delivery Medications Given After Delivery: IV Pitocin Episiotomy Description: None Laceration: Midline, Perineal Extension/lac (With bilateral sulcal tears) and 2nd degree Complication Complications: None Procedures Urinary/Genital 52xxx-59xxx: [id number] Vaginal Delivery global pkg (Forceps assisted)
[2021-07-19] MEDS: Lactated Ringers 500 ML 999 ML IV (07:39)
--- NOTE | 2021-07-19 07:42 | PCM.DC ---
Discharge Instructions Diet Discharge Diet: No restrictions Activity Discharge Activity: Return to Normal Activity, May Not Drive (while taking narcotic pain medications.) and May Shower May resume sexual activity in: 4-6 weeks Dressing / Incision Call your doctor if your incision/area has: Continuous Slow Oozing, Sudden Increased Bleeding, Increased Pain/ Swelling, Increased Redness and Foul Smelling Discharge Follow Up Care When: Call to make an appointment with your doctor in 6 weeks. If you had elevated Blood Pressure or 4th degree laceration you will need to be seen in 2 weeks. Test Results: Test results from this visit will be discussed in further detail at your follow-up appointment, if applicable. Discharge Plan Admission Admit Date/Time: 07/18/21 06:45 Attending Provider: Tamanna Aaron Primary Care Provider: Toñito Aaron Instructions Patient Instructions: After a Vaginal Discharge Orders/Prescriptions Prescriptions: New ibuprofen [ibuprofen] 400 MG tablet 800 mg PO Q8H Qty: 30 RF: 1 Continued levothyroxine 50 mcg capsule 50 mcg capsule 50 mcg PO DAILY RF: 0 escitalopram oxalate [Lexapro] 20 mg tablet 20 mg PO DAILY RF: 0 vitamin#30 30 mg iron-10 mg iron-folic acid 1 mg-omg3 capsule 30 mg iron-10 mg iron-1 mg capsule 1 cap PO DAILY RF: 0 pantoprazole 20 MG tablet 20 mg PO DAILY RF: 0 Discontinued metformin 500 mg tablet 500 mg PO DAILY RF: 0 No Action (DME) lancets 30 gauge misc See Rx Instructions ea .ROUTE .MEDSUPPLY Qty: 100 RF: 0 (DME) OneTouch Ultra Test Strip See Rx Instructions ea .ROUTE .MEDSUPPLY Qty: 10 RF: 0 (DME) blood-glucose meter Misc See Rx Instructions ea .ROUTE .MEDSUPPLY Qty: 1 RF: 0 Referrals / Follow Up: Toñito Aaron MD [Primary Care Provider] -
[2021-07-19 09:31] LABS: Bedside Glucose 119 mg/dL (70-110)
[2021-07-19] MEDS: Ibuprofen 600 MG Tablet PO (11:35)
[2021-07-19] MEDS: Levothyroxine 50 MCG Tablet PO (11:35)
[2021-07-19] MEDS: Escitalopram Oxalate 20 MG Tablet PO (11:35)
[2021-07-19] MEDS: Pantoprazole Sodium 20 MG Tablet PO (11:35)
[2021-07-19] MEDS: Prenatal Vits Tablet 1 TABLET PO (11:36)
[2021-07-19] MEDS: Benzocaine/Lanolin/Aloe Vera 1 SPRAY EACH TOPICAL (11:37)
[2021-07-19] MEDS: Dibucaine 30 GM Tube 1 APPLIC TOPICAL (11:37)
[2021-07-19] MEDS: Acetaminophen 500 MG Tablet 1000 MG PO (13:48)
== END 2021-07-19 19:05 | disposition home or self-care (01) | DRG 806 ==
PROVIDERS: Admitting Provider Obstetrics & Gynecology; PCP Family Medicine; Visit Provider Obstetrics & Gynecology
DX: O76 Abnormality in fetal heart rate and rhythm complicating labor and delivery (principal); O99.324 Drug use complicating childbirth; Z37.0 Single live birth; O24.424 Gestational diabetes mellitus in childbirth, insulin controlled; E66.9 Obesity, unspecified; O99.344 Other mental disorders complicating childbirth; F12.980 Cannabis use, unspecified with anxiety disorder; F41.9 Anxiety disorder, unspecified; O99.214 Obesity complicating childbirth; O99.284 Endocrine, nutritional and metabolic diseases complicating childbirth; E03.9 Hypothyroidism, unspecified; O77.0 Labor and delivery complicated by meconium in amniotic fluid; O70.1 Second degree perineal laceration during delivery; O75.81 Maternal exhaustion complicating labor and delivery; Z3A.39 39 weeks gestation of pregnancy; Z79.899 Other long term (current) drug therapy; Z87.891 Personal history of nicotine dependence; Z79.890 Hormone replacement therapy
CPT/HCPCS: 59025; 59050; 80307; 82962; 85025; 86850; 86900; 86901; 99218; J7050; J7120; G0378; J2405

== ENCOUNTER 2021-11-11 08:29 | Outpatient (CLI) | payer OTHER, SELFPAY ==
[2021-11-11 10:09] LABS: Absolute Lymphocyte Count 1.75 X10^3/uL (0.83-4.51); Basophil# 0.06 X10^3/uL; Basophil% 0.7 % (0-1); Eosinophil# 0.65 X10^3/uL; Eosinophils% 7.3 % (0-5); Hematocrit 35.7 % (37-47); Hemoglobin 10.1 g/dL (12.0-15.0); Lymphocyte # 1.75 X10^3/ul (0.83-4.51); Lymphocyte % 19.5 % (19-41); Mean Corp Hgb Conc 28.3 g/dL (32-36); Mean Corpuscular Hgb 21.6 pg (27.0-32.0); Mean Corpuscular Volume 76.4 fL (81-99); Mean Platelet Vol. 9.3 fl (6.2-12.0); Monocyte# 0.42 X10^3/uL; Monocyte% 4.7 % (0-10); NRBC Flagged by Analyzer 0 % (0-5); Neutrophil # 6.04 X10^3/uL (2.7-7.7); Neutrophil % 67.4 % (47-70); Platelet Count 482 K/mm3 (150-450); RBC Distribution Width SD 48.9 fl (35.1-43.9); Red Blood Count 4.67 M/mm3 (4.2-5.4)
[2021-11-11 10:23] LABS: Vitamin D,25 Hydroxy 31.1 ng/mL
[2021-11-11 10:29] LABS: Hemoglobin A1c 5.5 % (3.8-5.6)
[2021-11-11 10:34] LABS: ALB/GLOB Ratio 0.8 RATIO (0.9-2.4); AST(SGOT) 21 U/L (15-37); Alanine Aminotransfer ALT/SGPT 41 U/L (13-56); Albumin, Serum 3.4 g/dL (3.2-5.0); Alkaline Phosphatase 123 U/L (45-117); Anion Gap 11 (5-15); BUN 11 mg/dL (7-18); BUN/Creat Ratio 14.4 RATIO (10-20); Calcium,Total 9.1 mg/dL (8.5-10.1); Chloride 102 mmol/L (98-107); Cholesterol 200 mg/dL (200); Creatinine, Serum 0.76 mg/dL (0.55-1.02); EST Glomerular Filtration Rate 92 mL/min (>60); Est Glom Filt Rate - Afr Amer 111 mL/min (>60); Globulin 4.4 g/dL (2.2-4.2); Glucose 110 mg/dL (74-106); High Density Lipoprotein 78 mg/dL; Potassium 3.9 mmol/L (3.5-5.1); Protein, Total 7.8 g/dL (6.4-8.2); Sodium Level 140 mmol/L (136-145); T4 Free Direct 1.02 ng/dL (0.76-1.46); Thyroid Stim Hormone (TSH) 1.11 uIU/mL (0.358-3.74); Triglycerides 69 mg/dL; Very Low Density Lipoprotein 14 mg/dL (5-40)
[2021-11-12 14:13] LABS: Ferritin 5 ng/mL (8-252); Iron 28 ug/dL (50-170); Iron Binding Capacity,Total 473 ug/dL (250-450); PERCENT IRON SATURATION 5.9 % (15.0-55.0)
[2021-11-12 14:43] LABS: Vitamin B12 347 pg/mL (211-911)
[2021-11-12 18:04] LABS: Anti-Thyroglobulin AB < 1.0 IU/mL (0.0-0.9); Thyroglobulin, Serum Qt. 7.6 ng/mL (1.5-38.5); Thyroid Peroxidase AB < 8 IU/mL (0-34)
== END 2021-11-11 23:59 | disposition short-term general hospital (02) ==
LOC: MFPLAB 08:29
PROVIDERS: PCP Family Medicine; Referring Provider Family Medicine; Visit Provider Family Medicine
DX: D64.9 Anemia, unspecified (principal); E66.01 Morbid (severe) obesity due to excess calories; E55.9 Vitamin D deficiency, unspecified; E03.9 Hypothyroidism, unspecified; R73.02 Impaired glucose tolerance (oral)
CPT/HCPCS: 36415; 80053; 80061; 82306; 82607; 82728; 83036; 83540; 83550; 84432; 84439; 84443; 85025; 86376; 86800

== ENCOUNTER 2021-12-08 09:56 | Outpatient (CLI) | payer OTHER, SELFPAY ==
[2021-12-08 12:13] LABS: Absolute Lymphocyte Count 1.78 X10^3/uL (0.83-4.51); Absolute Neutrophil Count 6.7 X10^3/uL (2.0-7.7); Basophil# 0.05 X10^3/uL; Basophil% 0.5 % (0-1); Eosinophil# 0.37 X10^3/uL; Eosinophils% 3.9 % (0-5); Hematocrit 33.3 % (37-47); Hemoglobin 9.8 g/dL (12.0-15.0); Lymphocyte # 1.78 X10^3/ul (0.83-4.51); Lymphocyte % 18.7 % (19-41); Mean Corp Hgb Conc 29.4 g/dL (32-36); Mean Corpuscular Hgb 22.4 pg (27.0-32.0); Mean Platelet Vol. 9.3 fl (6.2-12.0); Monocyte% 6.3 % (0-10); NRBC Flagged by Analyzer 0 % (0-5); Neutrophil # 6.67 X10^3/uL (2.7-7.7); Neutrophil % 70.3 % (47-70); Platelet Count 445 K/mm3 (150-450); RBC Distribution Width CV 18.3 % (11.6-14.6); RBC Distribution Width SD 50.3 fl (35.1-43.9); Red Blood Count 4.38 M/mm3 (4.2-5.4); White Blood Count 9.5 K/mm3 (4.4-11.0)
[2021-12-08 12:29] LABS: Vitamin B12 394 pg/mL (211-911)
[2021-12-08 12:33] LABS: Ferritin 5 ng/mL (8-252); Iron 21 ug/dL (50-170); Iron Binding Capacity,Total 409 ug/dL (250-450)
== END 2021-12-08 23:59 | disposition home or self-care (01) ==
LOC: MFPLAB 09:57
PROVIDERS: PCP Family Medicine; Visit Provider Family Medicine
DX: D50.9 Iron deficiency anemia, unspecified (principal)
CPT/HCPCS: 36415; 82607; 82728; 83540; 83550; 85025

== ENCOUNTER 2021-12-15 07:42 | Outpatient (CLI) | payer OTHER, SELFPAY ==
--- NOTE | 2021-12-15 08:00 | RAD_ITS ---
STUDY: X-RAY - ESOPHAGUS (BARIUM SWALLOW) WITH FLUOROSCOPY REASON FOR EXAM: Female, 36 years old. DYSPHAGIA TECHNIQUE: 11 view(s) of the esophagus were obtained following swallowing of barium. FLUOROSCOPY TIME (if supplied): (14 seconds) minutes/seconds COMPARISON: None. FINDINGS: There is no demonstrated esophageal foreign body. There is no demonstrated stricture or mucosal abnormality. Normal gastroesophageal junction, without a demonstrated hiatal hernia. The patient ingested a 12 mm tablet of barium without any difficulty. Normal visualized aortic arch and descending thoracic aorta. Normal visualized pulmonary parenchyma. Normal visualized osseous structures of the thorax. RAD/Esophagus Dual Contrast IMPRESSION: Normal plain film x-ray examination (barium swallow) of the esophagus. Electronically Signed: Maxwell Tierney MD at 9:06 EST ,
== END 2021-12-15 23:59 | disposition home or self-care (01) ==
LOC: RAD 07:47
PROVIDERS: PCP Family Medicine; Referring Provider Family Medicine; Visit Provider Family Medicine
DX: R13.10 Dysphagia, unspecified (principal)
CPT/HCPCS: 74220; 74221

== ENCOUNTER 2021-12-23 06:56 | Day surgery (SDC) | payer OTHER, SELFPAY ==
[2021-12-23 07:23] LABS: Internal QC Validated? YES +Cl - CLEAR BKGD; Pregnancy, Urine Negative Negative
[2021-12-23 07:27] VITALS: BP 111/67; PULSE 80; RESP 16; TEMP 522.2; TEMP 972; O2SAT 99; BMI 40.8
[2021-12-23] MEDS: Lactated Ringers 1,000 ML 15 ML IV (07:32)
[2021-12-23 07:46] LABS: Bedside Glucose 104 mg/dL (70-110)
--- NOTE | 2021-12-23 07:53 | HP.PCM_ITS ---
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 Is patient in pain?: No Allergies amoxicillin Allergy (Verified 12/18/21 08:28) Rash Sulfa (Sulfonamide Antibiotics) Allergy (Verified 12/18/21 08:28) Rash Medications escitalopram oxalate 20 mg tablet 20 mg PO DAILY 06/26/19 [History Confirmed 12/18/21] metformin 1,000 mg tablet 1,000 mg PO BID 08/25/21 [History Confirmed 12/18/21] norethindrone (contraceptive) 0.35 mg tablet 0.35 mg PO DAILY #84 tab 08/25/21 [Rx Confirmed 12/18/21] ferrous sulfate 324 mg (65 mg iron) tablet,delayed release 324 mg PO DAILY 12/18/21 [History Confirmed 12/18/21] pantoprazole 20 mg tablet,delayed release 40 mg PO DAILY tab 12/18/21 [History Confirmed 12/18/21] [facility] Medical History (Updated 12/18/21 @ 08:25 by Grace Wednesday) Anxiety Gastroesophageal reflux disease History of gestational diabetes Low-lying placenta in second trimester Placental abnormality Thyroid disorder Surgical History History of tonsillectomy Family History (Updated 12/18/21 @ 08:26 by Grace Wednesday) Grandfather Myocardial infarction Uncle Leukemia Mother Diabetes Arthritis Sister Hypertension Social History Smoking Status: Former smoker alcohol intake: never substance use type: does not use caffeine: Yes what type of physical activity do you participate in: none seatbelt use: always do you feel safe at home: Yes additional social history: [employer] Patient work at [employer] HPI HPI HPI: MICHAEL SORENSON, is a 36 F who presents to the office today for surgical consultation regarding gastroesophageal reflux disease. The patient is referred by Dr Toñito Allen and a written copy of my surgical consult recommendations will return to him. The patient has had hypothyroidism since 2018. Also history of impaired glucose tolerance she occasionally has heartburn that goes up to her throat. She has had a previous history of iron deficiency anemia how ever recent stool cards were negative. Her body weight is 250 pounds with a BMI of 42.3. Current medications include ferrous sulfate and Metformin and escitalopram oxylate and 40 mg Protonix in addition to her proair HFA inhaler. A barium swallow was performed at the [facility] on December 15, 2021. This was felt to be normal. A 12 mm barium tablet passed without difficulty. Laboratory as of December 08, 2021 demonstrates a white blood cell count of 9.5 with a hemoglobin of 9.8 and hematocrit of 33.3. MCV is low at 76. MCH is low at 22.4. MCHC is low at 29.4. Platelet count is 145,000. It is of note that looking back through the laboratory of 2020 and with no results immediately available to me for 2023 2018 it appears that the previous date of September 30, 2018 demonstrating a hemoglobin of 13.1 with the previous time when a normal value was obtained. She has been abnormal since May 09, 2021 when hemoglobin of 10.4 at that time. At this time the etiology to her anemia is not quite been deciphered. She has not noticed any bright red blood per rectum or melena. No abdominal pain. There is no family history of colon polyps or colon cancer. She works for [employer]. 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 ROS General General: Yes fatigue; No weight change, appetite, colon cancer, breast cancer or weakness HEENT HEENT: No difficulty swallowing, eye injury, eye surgery, swollen glands or hoarseness Endo Endocrine: Yes thyroid disease; No diabetes mellitus, thyroid cancer, Hair loss, heat intolerance or cold intolerance Skin Skin: Yes changing moles; No rash Musc Musculoskeletal: No back problems, arthritis, rheumatoid arthritis, gout or joint pain Cardio Cardiovascular: No murmur, pacemaker, heart disease, atrial fibrillation, high blood pressure, heart attack, heart stent, palpitations, shortness of breat with exertion or chest pain Psych Psychiatric: Yes depression and anxiety; No hearing voices Resp Respiratory: Yes shortness of breath, No sleep apnea, Yes cough, No COPD, Yes asthma, No emphysema and No wheezing Gastro Gastrointestinal: No abdominal pain, Yes nausea or vomiting, Yes diarrhea, Yes constipation, No blood in stool, Yes acid reflux, Yes hemorrhoids, No ulcers, No gallbladder problem and No black,tarry stools Polo Hematologic: No blood thinners, No blood disorders, No bleeding, Yes anemia and No blood clots Neuro Neurologic: No system reviewed and no additional complaints, except as documented, No as per HPI, No abnormal gait, No abnormal hearing, No abnormal movements, No abnormal speech, No behavioral changes, No burning sensations, No confusion, No convulsions, No disequilibrium, No dizziness, No localized weakness, No frequent falls, No headache(s), No lack of coordination, No loss of vision, No memory loss, No numbness, No other visual disturbances, No radicular pain, No restless legs, No sensory deficit, No syncope, No tingling, No tremor(s), No weakness and No other Exam Const General: cooperative, healthy appearing, comfortable and no acute distress Nutritional Appearance: obese HENMT Head: normal to inspection Eyes General: appearance normal, both eyes and all related structures Resp Effort & Inspection: normal respiratory effort Auscultation: clear to auscultation bilaterally Cardio Rate: regular rate Rhythm: regular rhythm GI Palpation: soft and no hepatosplenomegaly Auscultation: normal bowel sounds Musc Cervical Spine: normal cervical lordosis Skin General: no rashes or lesions noted Neuro General: patient alert, patient awake and patient oriented x3 Extrem General: no calf tenderness Other: No swelling noted Psych Appearance: grossly normal Assessment and Plan Assessment and Plan (1) Gastroesophageal reflux disease: Qualifiers: Esophagitis presence: esophagitis presence not specified Qualified Code(s): K21.9 - Gastro-esophageal reflux disease without esophagitis Plan - Dr. Grant Hudson MD: 36-year-old female. Long-term history of gastroesophageal reflux disease with previously diagnosed esophagitis back to the age of 15 based upon EGD and pH probe. The patient initially was on Nexium for years and then eventually got switched over to pantoprazole which she has been on for multiple years. She is mostly asymptomatic however particular she drinks lemonade or destinee that can aggravate her. She used to elevate the head of her bed but does not do that currently. She has not had any abdominal operations. Since age 15 she has not had an upper endoscopy. She did have the contrast upper GI study as previously noted. Her anemia has not been deciphered. She has never had a colonoscopy. I recommended the patient a esophagogastroduodenoscopy with possible biopsy and very careful inspection for reflux changes or Serrano's. I recommended the patient a colonoscopy with possible biopsy or polypectomy as indicated to try to assist with defining potential etiology to her anemia. She has had an opportunity to ask and have questions answered. I appreciate the opportunity of assisting with her surgical care. It is of note that I did discuss with her treatment options. BMI is greater than 35. She might however be a candidate if she so desired to pursue bariatric surgery in the form of gastric bypass procedure with which also will simultaneously treat her reflux. She will have more information with which to work once we complete her endoscopic evaluation. Copy: Dr Toñito Hudson M.D., F.A.C.S. I have re-examined the patient. There are no clinical changes since date of exam.
--- NOTE | 2021-12-23 08:00 | EGD_PTH ---
PATIENT: MICHAEL SORENSON LOC: EN U#:[id number] AGE/SX: 36/F ROOM: RE12/23/[address]: Dr. Grant Hudson MD : 1985 BED: DIS: 12/23/2021 SPEC #: [id number] RECD: 12/23/21 11:17 STATUS: HANNAH GAITAN #: [id number] CHRIS: 12/23/21 08:[address]: Grant Hudson DEPT: SURGICAL PATHOLOGY RECD BY: Mariana Mckeon ENTERED: 12/23/21 11:44 SP TYPE: EGD BIOPSY OT DR: Dr. Toñito Allen MD Tissues: A - Gastric mucous membrane B - Stomach, NOS C - Esophagus, NOS D - Descending colon Procedures: Special Stain Group II Surgery Specimen Level IV Alcian Blue/PAS (control) HEADER OPERATION: [place] PRE-OP DIAGNOSIS: GERD TISSUE SUBMITTED: A ? Antrum biopsy for H. pylori and path, B ? Greater curvature polyp, C ? Distal esophagus biopsy, D ? Descending polyp biopsy MICROSCOPIC DIAGNOSIS A. Gastric antrum, biopsy: Chronic gastritis. See comment. B. Polyp of greater curvature of stomach, biopsy: Changes suggestive of hyperplastic polyp. C. Distal esophagus, biopsy: Gastroesophageal junctional mucosa with mild chronic inflammation. No evidence of goblet cell metaplasia. See comment. D. Descending colon polyp, biopsy: Hyperplastic polyp. AM:jason 12/24/2021 COMMENT A. The results of immunohistochemistry for Helicobacter pylori will be reported separately ([id number]). C. Alcian blue/PAS stain with matched control supports the above diagnosis. MICROSCOPIC DESCRIPTION Slides are reviewed. GROSS DESCRIPTION A - Received in fixative is one container labeled with the patient's name and designated antrum biopsy. The specimen consists of one irregular fragment of light cummins soft tissue that measures 0.3 x 0.3 x 0.1 cm. The specimen is totally submitted in one cassette. B - Received in fixative is one container labeled with the patient's name and designated greater curvature polyp. The specimen consists of two irregular fragments of light cummins soft tissue that in aggregate measure 0.5 x 0.4 x 0.1 cm. The specimen is totally submitted in one cassette. C - Received in fixative is one container labeled with the patient's name and designated distal esophagus biopsy. The specimen consists of multiple irregular fragments of light cummins soft tissue that in aggregate measure 1.5 x 0.5 x 0.1 cm. The specimen is totally submitted in one cassette. D - Received in fixative is one container labeled with the patient's name and designated descending polyp biopsy. The specimen consists of one irregular fragment of light cummins soft tissue that measures 0.3 x 0.2 x 0.1 cm. The specimen is totally submitted in one cassette. / SJ:rg 12/23/2021 TC:3 CPT: 44877 x4
--- NOTE | 2021-12-23 08:00 | IMM_PTH ---
PATIENT: MICHAEL SORENSON LOC: EN U#:[id number] AGE/SX: 36/F ROOM: RE12/23/[address]: Dr. Grant Hudson MD : 1985 BED: DIS: 12/23/2021 SPEC #: [id number] RECD: 12/23/21 13:06 STATUS: HANNAH ARNIE #: [id number] CHRIS: 12/23/21 08:[address]: Grant Hudson DEPT: IMMUNOHISTOCHEMISTRY RECD BY: Jill Rubio ENTERED: 12/23/21 13:07 SP TYPE: IMMUNO OTHR DR: Dr. Toñito Allen MD Tissues: A - Stomach, NOS Procedures: H Pylori (initial) PHYSICIAN & INSTITUTION [place] [id number] SPECIMEN INFORMATION: Tissue Source: A ? Antrum biopsy Clinical Info: GERD Specimen Number: [id number] CPT code: 16980 METHODOLOGY: Deparaffinized sections of prefer/formalin-fixed tissue or PAP/DQ stained slides are incubated with monoclonal/polyclonal antibodies/oligonucleotide probes. Localization is made via biotin free immunoperoxidase method. Appropriate controls are performed and reacted as expected. Results on target cell population are indicated in the following table: RESULTS: ANTIBODY / CLONE RESULT Block A H Pylori (polyclonal) negative These tests were developed and their performance characteristics determined by [facility]. They may not have been cleared or approved by the U.S. Food and Drug Administration. The FDA has determined that such clearance or approval is not necessary. INTERPRETATION: A. Antrum biopsy: Negative for Helicobacter pylori organisms. AM:jason 12/24/2021
[2021-12-23 09:10] VITALS: BP 111/67; BP 98/55; PULSE 85; RESP 18; TEMP 36.2; O2SAT 100
--- NOTE | 2021-12-23 09:13 | OP.CCLET_ITS ---
12/23/2021 Toñito Allen [address] [place] [address] Re : Upper GI endoscopy procedure for Tiff Briceno Dear Dr. Allen This procedure was performed on Thursday, December 23, 2021. My impressions and recommendations are as follows: Impressions : - LA Grade A reflux esophagitis. Biopsied. - Medium-sized hiatal hernia. - Multiple gastric polyps. Resected and retrieved. - Erythematous mucosa in the antrum. Biopsied. - Normal examined duodenum. Recommendations : - Discharge patient to home. - Resume previous diet. - Continue present medications. - Use sucralfate tablets 1 gram PO QID. My findings are described in the full procedure note, which is enclosed. If I can be of further assistance, please feel free to contact me at Doctor phone number(s): Work: . Sincerely, Grant Hudson MD 12/23/2021 9:12:58 AM This report has been signed electronically.
--- NOTE | 2021-12-23 09:13 | OP.EGD_ITS ---
Patient Name: Tiff Briceno Procedure Date: 12/23/2021 8:31 AM Date of : 1985 Age: 36 Procedure: Upper GI endoscopy Indications: Iron deficiency anemia, Suspected gastro-esophageal reflux disease Providers: Grant Hudson MD Referring MD: Toñito Allen Medicines: See the Anesthesia note for documentation of the administered medications Complications: No immediate complications. Procedure: Pre-Anesthesia Assessment: - Prior to the procedure, a History and Physical was performed, and patient medications and allergies were reviewed. The patient's tolerance of previous anesthesia was also reviewed. The risks and benefits of the procedure and the sedation options and risks were discussed with the patient. All questions were answered, and informed consent was obtained. Prior Anticoagulants: The patient has taken no previous anticoagulant or antiplatelet agents. ASA Grade Assessment: II - A patient with mild systemic disease. After reviewing the risks and benefits, the patient was deemed in satisfactory condition to undergo the procedure. After obtaining informed consent, the endoscope was passed under direct vision. Throughout the procedure, the patient's blood pressure, pulse, and oxygen saturations were monitored continuously. The gastroscope was introduced through the mouth, and advanced to the second part of duodenum. The upper GI endoscopy was somewhat difficult due to the patient's body habitus. The patient tolerated the procedure well. Scope In: 8:36:49 AM Scope Out: 8:46:12 AM Total Procedure Duration Time 0 hours 9 minutes 23 seconds Findings: LA Grade A (one or more mucosal breaks less than 5 mm, not extending between tops of 2 mucosal folds) esophagitis with no bleeding was found 37 cm from the incisors. Biopsies were taken with a cold forceps for histology. A medium-sized hiatal hernia was present. Multiple sessile polyps with no bleeding and no stigmata of recent bleeding were found on the greater curvature of the stomach. The polyp was removed with a cold biopsy forceps. Resection and retrieval were complete. Diffuse mildly erythematous mucosa without bleeding was found in the gastric antrum. Biopsies were taken with a cold forceps for histology. The examined duodenum was normal. Impression: - LA Grade A reflux esophagitis. Biopsied. - Medium-sized hiatal hernia. - Multiple gastric polyps. Resected and retrieved. - Erythematous mucosa in the antrum. Biopsied. - Normal examined duodenum. Recommendation: - Discharge patient to home. - Resume previous diet. - Continue present medications. - Use sucralfate tablets 1 gram PO QID. Procedure Code(s): --- Professional --- 44852, Esophagogastroduodenoscopy, flexible, transoral; with biopsy, single or multiple Diagnosis Code(s): --- Professional --- K21.0, Gastro-esophageal reflux disease with esophagitis K44.9, Diaphragmatic hernia without obstruction or gangrene K31.7, Polyp of stomach and duodenum K31.89, Other diseases of stomach and duodenum D50.9, Iron deficiency anemia, unspecified CPT copyright 2017 [employer]. All rights reserved. The codes documented in this report are preliminary and upon stamping press operator review may be revised to meet current compliance requirements. Grant Hudson MD 12/23/2021 9:12:58 AM This report has been signed electronically. Number of Addenda: 0 Note Initiated On: 12/23/2021 8:31 AM
[2021-12-23 09:15] VITALS: BP 103/66; BP 111/67; PULSE 76; RESP 18; O2SAT 97
--- NOTE | 2021-12-23 09:19 | OP.COLON_ITS ---
Patient Name: Tiff Briceno Procedure Date: 12/23/2021 8:48 AM Date of : 1985 Age: 36 Procedure: Colonoscopy Indications: Iron deficiency anemia Providers: Grant Hudson MD Referring MD: Toñito Allen Medicines: See the Anesthesia note for documentation of the administered medications Patient Profile: Last Colonoscopy: none. The patient's first colonoscopy is today. Complications: No immediate complications. Procedure: Pre-Anesthesia Assessment: - Prior to the procedure, a History and Physical was performed, and patient medications and allergies were reviewed. The patient's tolerance of previous anesthesia was also reviewed. The risks and benefits of the procedure and the sedation options and risks were discussed with the patient. All questions were answered, and informed consent was obtained. Prior Anticoagulants: The patient has taken no previous anticoagulant or antiplatelet agents. ASA Grade Assessment: II - A patient with mild systemic disease. After reviewing the risks and benefits, the patient was deemed in satisfactory condition to undergo the procedure. After I obtained informed consent, the scope was passed under direct vision. Throughout the procedure, the patient's blood pressure, pulse, and oxygen saturations were monitored continuously. The adult colonoscope was introduced through the anus and advanced to the cecum, identified by appendiceal orifice and ileocecal valve. The colonoscopy was performed without difficulty. The patient tolerated the procedure well. The quality of the bowel preparation was good. The ileocecal valve and the appendiceal orifice were photographed. Scope In: 8:50:32 AM Scope Withdrawal Time 0 hours 8 minutes 39 seconds Scope Out: 9:04:22 AM Total Procedure Duration Time 0 hours 13 minutes 50 seconds Findings: Hemorrhoids were found on perianal exam. A 5 mm polyp was found in the proximal descending colon. The polyp was sessile. The polyp was removed with a cold biopsy forceps. Resection and retrieval were complete. The exam was otherwise without abnormality. Impression: - Hemorrhoids found on perianal exam. - One 5 mm polyp in the proximal descending colon, removed with a cold biopsy forceps. Resected and retrieved. - The examination was otherwise normal. Recommendation: - Discharge patient to home. - Resume previous diet. - Continue present medications. - Repeat colonoscopy in 5 years for surveillance based on pathology results. - Telephone my office for pathology results in 1 week. Procedure Code(s): --- Professional --- 46302, Colonoscopy, flexible; with biopsy, single or multiple Diagnosis Code(s): --- Professional --- K64.9, Unspecified hemorrhoids D12.4, Benign neoplasm of descending colon D50.9, Iron deficiency anemia, unspecified CPT copyright 2017 [employer]. All rights reserved. The codes documented in this report are preliminary and upon engagement mgr review may be revised to meet current compliance requirements. Grant Hudson MD 12/23/2021 9:18:42 AM This report has been signed electronically. Number of Addenda: 0 Note Initiated On: 12/23/2021 8:48 AM
[2021-12-23 09:20] VITALS: BP 111/67; BP 114/66; PULSE 76; RESP 18; O2SAT 98
--- NOTE | 2021-12-23 09:20 | OP.CCLET_ITS ---
12/23/2021 Toñito Allen [address] [place] [address] Re : Colonoscopy procedure for Tiff Aggarwalp Dear Dr. Allen This procedure was performed on Thursday, December 23, 2021. My impressions and recommendations are as follows: Impressions : - Hemorrhoids found on perianal exam. - One 5 mm polyp in the proximal descending colon, removed with a cold biopsy forceps. Resected and retrieved. - The examination was otherwise normal. Recommendations : - Discharge patient to home. - Resume previous diet. - Continue present medications. - Repeat colonoscopy in 5 years for surveillance based on pathology results. - Telephone my office for pathology results in 1 week. My findings are described in the full procedure note, which is enclosed. If I can be of further assistance, please feel free to contact me at Doctor phone number(s): Work: . Sincerely, Grant Hudson MD 12/23/2021 9:18:42 AM This report has been signed electronically.
[2021-12-23 09:23] VITALS: BP 106/67; BP 111/67; PULSE 73; RESP 18; TEMP 36.4; O2SAT 100
== END 2021-12-23 23:59 | disposition home or self-care (01) ==
LOC: EN 06:58 → AC 06:58
PROVIDERS: Anesthesiology; PCP Family Medicine; Referring Provider Family Medicine; Visit Provider Surgery
PROC: 0DJD8ZZ Inspection of Lower Intestinal Tract, Via Natural or Artificial Opening Endoscopic (ICD-10-PCS; CPT 45378; principal; 2021-12-23 07:55)
DX: K21.9 Gastro-esophageal reflux disease without esophagitis (principal); E11.9 Type 2 diabetes mellitus without complications; K44.9 Diaphragmatic hernia without obstruction or gangrene; E03.9 Hypothyroidism, unspecified; K64.9 Unspecified hemorrhoids; Z87.891 Personal history of nicotine dependence; K63.5 Polyp of colon; D50.9 Iron deficiency anemia, unspecified; K31.7 Polyp of stomach and duodenum; Z79.899 Other long term (current) drug therapy; Z79.84 Long term (current) use of oral hypoglycemic drugs; J45.909 Unspecified asthma, uncomplicated; F32.A Depression, unspecified; F41.9 Anxiety disorder, unspecified
CPT/HCPCS: 45380; 43239; 81025; 82962; 88305; 88313; 88342; J7120; J2405

== ENCOUNTER 2021-12-25 16:59 | Outpatient (CLI) | payer OTHER, SELFPAY ==
[2021-12-25 17:51] LABS: Absolute Lymphocyte Count 2.64 X10^3/uL (0.83-4.51); Absolute Neutrophil Count 6.9 X10^3/uL (2.0-7.7); Basophil# 0.06 X10^3/uL; Basophil% 0.6 % (0-1); Eosinophils% 3.7 % (0-5); Hemoglobin 10.2 g/dL (12.0-15.0); Lymphocyte # 2.64 X10^3/ul (0.83-4.51); Lymphocyte % 24.6 % (19-41); Mean Corp Hgb Conc 29.1 g/dL (32-36); Mean Corpuscular Hgb 22.3 pg (27.0-32.0); Mean Corpuscular Volume 76.4 fL (81-99); Mean Platelet Vol. 9.4 fl (6.2-12.0); Monocyte# 0.71 X10^3/uL; Monocyte% 6.6 % (0-10); NRBC Flagged by Analyzer 0 % (0-5); Neutrophil # 6.89 X10^3/uL (2.7-7.7); Neutrophil % 64.2 % (47-70); Platelet Count 454 K/mm3 (150-450); RBC Distribution Width CV 18.3 % (11.6-14.6); RBC Distribution Width SD 50.7 fl (35.1-43.9); Red Blood Count 4.58 M/mm3 (4.2-5.4); White Blood Count 10.7 K/mm3 (4.4-11.0)
[2021-12-25 19:07] LABS: Ferritin 7 ng/mL (8-252); Iron 22 ug/dL (50-170); Iron Binding Capacity,Total 427 ug/dL (250-450)
== END 2021-12-25 23:59 | disposition home or self-care (01) ==
LOC: MFPLAB 17:02
PROVIDERS: PCP Family Medicine; Referring Provider Family Medicine; Visit Provider Family Medicine
DX: D50.9 Iron deficiency anemia, unspecified (principal)
CPT/HCPCS: 36415; 82728; 83540; 83550; 85025

== ENCOUNTER → 2022-03-02 | Outpatient (CLI) | payer OTHER, SELFPAY ==
[2022-03-02 17:53] LABS: Vitamin D,25 Hydroxy 42.4 ng/mL
[2022-03-02 17:54] LABS: Absolute Neutrophil Count 5.9 X10^3/uL (2.0-7.7); Basophil# 0.05 X10^3/uL; Basophil% 0.5 % (0-1); Eosinophil# 0.37 X10^3/uL; Eosinophils% 3.9 % (0-5); Hematocrit 35.6 % (37-47); Hemoglobin 10.5 g/dL (12.0-15.0); Lymphocyte % 25.5 % (19-41); Mean Corp Hgb Conc 29.5 g/dL (32-36); Mean Corpuscular Hgb 23.4 pg (27.0-32.0); Mean Corpuscular Volume 79.5 fL (81-99); Mean Platelet Vol. 9.8 fl (6.2-12.0); Monocyte# 0.63 X10^3/uL; Monocyte% 6.7 % (0-10); NRBC Flagged by Analyzer 0 % (0-5); Neutrophil # 5.93 X10^3/uL (2.7-7.7); Neutrophil % 63.1 % (47-70); Platelet Count 410 K/mm3 (150-450); RBC Distribution Width CV 17.9 % (11.6-14.6); RBC Distribution Width SD 51.3 fl (35.1-43.9); Red Blood Count 4.48 M/mm3 (4.2-5.4); White Blood Count 9.4 K/mm3 (4.4-11.0)
[2022-03-02 17:57] LABS: Hemoglobin A1c 5.5 % (3.8-5.6)
[2022-03-02 18:01] LABS: ALB/GLOB Ratio 0.9 RATIO (0.9-2.4); AST(SGOT) 14 U/L (15-37); Alanine Aminotransfer ALT/SGPT 30 U/L (13-56); Albumin, Serum 3.4 g/dL (3.2-5.0); Alkaline Phosphatase 110 U/L (45-117); Anion Gap 4 (5-15); BUN 12 mg/dL (7-18); Calcium,Total 8.4 mg/dL (8.5-10.1); Chloride 102 mmol/L (98-107); Creatinine, Serum 0.75 mg/dL (0.55-1.02); EST Glomerular Filtration Rate 94 mL/min (>60); Est Glom Filt Rate - Afr Amer 114 mL/min (>60); Ferritin 4 ng/mL (8-252); Globulin 3.9 g/dL (2.2-4.2); Glucose 102 mg/dL (74-106); Iron 16 ug/dL (50-170); Iron Binding Capacity,Total 416 ug/dL (250-450); Potassium 3.7 mmol/L (3.5-5.1); Protein, Total 7.3 g/dL (6.4-8.2); Sodium Level 137 mmol/L (136-145); T4 Free Direct 0.88 ng/dL (0.76-1.46); Thyroid Stim Hormone (TSH) 3.51 uIU/mL (0.358-3.74)
== END | disposition home or self-care (01) ==
LOC: MFPLAB 14:53
PROVIDERS: PCP Family Medicine; Visit Provider Family Medicine
DX: D50.9 Iron deficiency anemia, unspecified (principal); R73.02 Impaired glucose tolerance (oral); E03.9 Hypothyroidism, unspecified; E55.9 Vitamin D deficiency, unspecified
CPT/HCPCS: 36415; 80053; 82306; 82728; 83036; 83540; 83550; 84439; 84443; 85025

== ENCOUNTER → 2022-07-16 | Outpatient (CLI) | payer OTHER, SELFPAY ==
[2022-07-16 10:11] LABS: Absolute Lymphocyte Count 1.68 X10^3/uL (0.83-4.51); Absolute Neutrophil Count 7.3 X10^3/uL (2.0-7.7); Basophil# 0.04 X10^3/uL; Basophil% 0.4 % (0-1); Eosinophil# 0.36 X10^3/uL; Eosinophils% 3.6 % (0-5); Hematocrit 42.7 % (37-47); Hemoglobin 14.2 g/dL (12.0-15.0); Lymphocyte # 1.68 X10^3/ul (0.83-4.51); Lymphocyte % 16.8 % (19-41); Mean Corp Hgb Conc 33.3 g/dL (32-36); Mean Corpuscular Hgb 30.5 pg (27.0-32.0); Mean Corpuscular Volume 91.6 fL (81-99); Mean Platelet Vol. 9.6 fl (6.2-12.0); NRBC Flagged by Analyzer 0 % (0-5); Neutrophil % 72.9 % (47-70); Platelet Count 315 K/mm3 (150-450); RBC Distribution Width SD 50.3 fl (35.1-43.9); Red Blood Count 4.66 M/mm3 (4.2-5.4)
[2022-07-16 10:32] LABS: Hemoglobin A1c 5.6 % (3.8-5.6)
[2022-07-16 10:48] LABS: ALB/GLOB Ratio 0.9 RATIO (0.9-2.4); AST(SGOT) 15 U/L (15-37); Alanine Aminotransfer ALT/SGPT 33 U/L (13-56); Albumin, Serum 3.4 g/dL (3.2-5.0); Alkaline Phosphatase 104 U/L (45-117); Anion Gap 9 (5-15); BUN 6 mg/dL (7-18); BUN/Creat Ratio 8.1 RATIO (10-20); Calcium,Total 9.2 mg/dL (8.5-10.1); Chloride 104 mmol/L (98-107); Cholesterol 215 mg/dL (200); Creatinine, Serum 0.74 mg/dL (0.55-1.02); EST Glomerular Filtration Rate 95 mL/min (>60); Est Glom Filt Rate - Afr Amer 115 mL/min (>60); Ferritin 82 ng/mL (8-252); Globulin 3.9 g/dL (2.2-4.2); Glucose 98 mg/dL (74-106); High Density Lipoprotein 59 mg/dL; Iron 78 ug/dL (50-170); Iron Binding Capacity,Total 312 ug/dL (250-450); Potassium 4.1 mmol/L (3.5-5.1); Protein, Total 7.3 g/dL (6.4-8.2); Sodium Level 139 mmol/L (136-145); T4 Free Direct 1.02 ng/dL (0.76-1.46); Thyroid Stim Hormone (TSH) 1.55 uIU/mL (0.358-3.74); Triglycerides 50 mg/dL; Very Low Density Lipoprotein 10 mg/dL (5-40)
== END | disposition home or self-care (01) ==
PROVIDERS: PCP Family Medicine; Referring Provider Family Medicine; Visit Provider Family Medicine
DX: L30.9 Dermatitis, unspecified (principal); L57.8 Other skin changes due to chronic exposure to nonionizing radiation
CPT/HCPCS: 36415; 80053; 80061; 82728; 83036; 83540; 83550; 84439; 84443; 85025

== ENCOUNTER → 2022-07-30 | Outpatient (CLI) | payer OTHER, SELFPAY ==
[2022-07-30 10:18] LABS: Rheumatoid Factor < 10.0 IU/mL (<15)
[2022-08-06 10:24] LABS: Anti-Nuclear Antibody Test Negative (.)
== END | disposition home or self-care (01) ==
LOC: MTLAB 08:19
PROVIDERS: PCP Family Medicine; Referring Provider Physician Assistant; Visit Provider Physician Assistant
DX: L92.0 Granuloma annulare (principal); L82.1 Other seborrheic keratosis; L81.4 Other melanin hyperpigmentation; D18.01 Hemangioma of skin and subcutaneous tissue; L57.8 Other skin changes due to chronic exposure to nonionizing radiation; L21.8 Other seborrheic dermatitis; D48.5 Neoplasm of uncertain behavior of skin; Z71.89 Other specified counseling
CPT/HCPCS: 36415; 86038; 86431

== ENCOUNTER → 2022-08-27 | Outpatient (CLI) | payer OTHER, SELFPAY ==
[2022-09-10 09:04] LABS: HPV APTIMA, High Risk Negative (Negative)
== END | disposition home or self-care (01) ==
PROVIDERS: PCP Family Medicine; Visit Provider Obstetrics & Gynecology
DX: Z12.4 Encounter for screening for malignant neoplasm of cervix (principal)
CPT/HCPCS: 87624; 88175; G0145

== ENCOUNTER → 2022-10-19 | Outpatient (CLI) | payer OTHER, SELFPAY ==
[2022-10-19 17:38] LABS: Absolute Lymphocyte Count 2.07 X10^3/uL (0.83-4.51); Absolute Neutrophil Count 10.4 X10^3/uL (2.0-7.7); Basophil# 0.05 X10^3/uL; Basophil% 0.4 % (0-1); Eosinophil# 0.21 X10^3/uL; Eosinophils% 1.6 % (0-5); Hemoglobin 14.4 g/dL (12.0-15.0); Lymphocyte # 2.07 X10^3/ul (0.83-4.51); Lymphocyte % 15.4 % (19-41); Mean Corp Hgb Conc 34.3 g/dL (32-36); Mean Corpuscular Hgb 31.8 pg (27.0-32.0); Mean Corpuscular Volume 92.7 fL (81-99); Mean Platelet Vol. 9.8 fl (6.2-12.0); Monocyte# 0.62 X10^3/uL; Monocyte% 4.6 % (0-10); NRBC Flagged by Analyzer 0 % (0-5); Neutrophil # 10.41 X10^3/uL (2.7-7.7); Neutrophil % 77.6 % (47-70); Platelet Count 360 K/mm3 (150-450); RBC Distribution Width CV 12.6 % (11.6-14.6); RBC Distribution Width SD 42.9 fl (35.1-43.9); Red Blood Count 4.53 M/mm3 (4.2-5.4); White Blood Count 13.4 K/mm3 (4.4-11.0)
[2022-10-19 18:00] LABS: Vitamin D,25 Hydroxy 36.9 ng/mL
[2022-10-19 18:02] LABS: Hemoglobin A1c 5.5 % (3.8-5.6)
[2022-10-19 18:15] LABS: AST(SGOT) 12 U/L (15-37); Alanine Aminotransfer ALT/SGPT 34 U/L (13-56); Albumin, Serum 3.6 g/dL (3.2-5.0); Alkaline Phosphatase 108 U/L (45-117); Anion Gap 8 (5-15); BUN 12 mg/dL (7-18); BUN/Creat Ratio 16.3 RATIO (10-20); Calcium,Total 8.9 mg/dL (8.5-10.1); Chloride 103 mmol/L (98-107); Creatinine, Serum 0.74 mg/dL (0.55-1.02); EST Glomerular Filtration Rate 95 mL/min (>60); Est Glom Filt Rate - Afr Amer 115 mL/min (>60); Ferritin 92 ng/mL (8-252); Globulin 3.6 g/dL (2.2-4.2); Glucose 124 mg/dL (74-106); Iron 75 ug/dL (50-170); Iron Binding Capacity,Total 316 ug/dL (250-450); Potassium 3.9 mmol/L (3.5-5.1); Protein, Total 7.2 g/dL (6.4-8.2); Sodium Level 137 mmol/L (136-145)
== END | disposition home or self-care (01) ==
LOC: MFPLAB 16:29
PROVIDERS: PCP Family Medicine; Visit Provider Family Medicine
DX: D50.9 Iron deficiency anemia, unspecified (principal); E55.9 Vitamin D deficiency, unspecified; R73.02 Impaired glucose tolerance (oral)
CPT/HCPCS: 36415; 80053; 82306; 82728; 83036; 83540; 83550; 85025

== ENCOUNTER → 2023-01-29 | Outpatient (CLI) | payer OTHER, SELFPAY ==
[2023-01-29 15:15] LABS: Absolute Lymphocyte Count 2.45 X10^3/uL (0.83-4.51); Absolute Neutrophil Count 7.7 X10^3/uL (2.0-7.7); Basophil# 0.06 X10^3/uL; Basophil% 0.5 % (0-1); Eosinophil# 0.33 X10^3/uL; Eosinophils% 2.9 % (0-5); Hematocrit 42.7 % (37-47); Hemoglobin 14.3 g/dL (12.0-15.0); Lymphocyte # 2.45 X10^3/ul (0.83-4.51); Lymphocyte % 21.9 % (19-41); Mean Corp Hgb Conc 33.5 g/dL (32-36); Mean Corpuscular Hgb 30.6 pg (27.0-32.0); Mean Corpuscular Volume 91.4 fL (81-99); Mean Platelet Vol. 9.5 fl (6.2-12.0); Monocyte# 0.65 X10^3/uL; Monocyte% 5.8 % (0-10); NRBC Flagged by Analyzer 0 % (0-5); Neutrophil # 7.66 X10^3/uL (2.7-7.7); Neutrophil % 68.5 % (47-70); Platelet Count 387 K/mm3 (150-450); RBC Distribution Width CV 12.6 % (11.6-14.6); RBC Distribution Width SD 41.2 fl (35.1-43.9); Red Blood Count 4.67 M/mm3 (4.2-5.4); White Blood Count 11.2 K/mm3 (4.4-11.0)
[2023-01-29 15:35] LABS: ALB/GLOB Ratio 0.8 RATIO (0.9-2.4); AST(SGOT) 16 U/L (15-37); Alanine Aminotransfer ALT/SGPT 29 U/L (13-56); Albumin, Serum 3.3 g/dL (3.2-5.0); Alkaline Phosphatase 109 U/L (45-117); Anion Gap 6 (5-15); BUN 10 mg/dL (7-18); BUN/Creat Ratio 12.3 RATIO (10-20); Calcium,Total 9.2 mg/dL (8.5-10.1); Chloride 105 mmol/L (98-107); Creatinine, Serum 0.81 mg/dL (0.55-1.02); EST Glomerular Filtration Rate 85 mL/min (>60); Est Glom Filt Rate - Afr Amer 103 mL/min (>60); Ferritin 90 ng/mL (8-252); Globulin 4.1 g/dL (2.2-4.2); Glucose 117 mg/dL (74-106); Iron 42 ug/dL (50-170); Iron Binding Capacity,Total 359 ug/dL (250-450); Potassium 3.8 mmol/L (3.5-5.1); Protein, Total 7.4 g/dL (6.4-8.2); Sodium Level 137 mmol/L (136-145)
[2023-01-29 15:36] LABS: Vitamin D,25 Hydroxy 46.4 ng/mL
[2023-01-29 15:40] LABS: Hemoglobin A1c < 3.8 % (3.8-5.6)
== END | disposition home or self-care (01) ==
LOC: MTLAB 14:05
PROVIDERS: PCP Family Medicine; Referring Provider Family Medicine; Visit Provider Family Medicine
DX: D50.9 Iron deficiency anemia, unspecified (principal); R73.02 Impaired glucose tolerance (oral); E55.9 Vitamin D deficiency, unspecified
CPT/HCPCS: 36415; 80053; 82306; 82728; 83036; 83540; 83550; 85025

== ENCOUNTER → 2023-05-24 | Outpatient (CLI) | payer OTHER, SELFPAY ==
[2023-05-24 08:55] LABS: Absolute Lymphocyte Count 1.86 X10^3/uL (0.83-4.51); Absolute Neutrophil Count 7.3 X10^3/uL (2.0-7.7); Basophil# 0.05 X10^3/uL; Basophil% 0.5 % (0-1); Eosinophil# 0.33 X10^3/uL; Eosinophils% 3.2 % (0-5); Hematocrit 42.2 % (37-47); Hemoglobin 13.8 g/dL (12.0-15.0); Lymphocyte # 1.86 X10^3/ul (0.83-4.51); Lymphocyte % 18.3 % (19-41); Mean Corp Hgb Conc 32.7 g/dL (32-36); Mean Corpuscular Hgb 30.4 pg (27.0-32.0); Mean Platelet Vol. 9.6 fl (6.2-12.0); Monocyte# 0.56 X10^3/uL; Monocyte% 5.5 % (0-10); NRBC Flagged by Analyzer 0 % (0-5); Neutrophil # 7.31 X10^3/uL (2.7-7.7); Platelet Count 327 K/mm3 (150-450); RBC Distribution Width SD 44.4 fl (35.1-43.9); Red Blood Count 4.54 M/mm3 (4.2-5.4); White Blood Count 10.2 K/mm3 (4.4-11.0)
[2023-05-24 09:21] LABS: Hemoglobin A1c 5.3 % (3.8-5.6)
[2023-05-24 09:28] LABS: ALB/GLOB Ratio 0.8 RATIO (0.9-2.4); AST(SGOT) 33 U/L (15-37); Alanine Aminotransfer ALT/SGPT 35 U/L (13-56); Albumin, Serum 3.3 g/dL (3.2-5.0); Alkaline Phosphatase 103 U/L (45-117); Anion Gap 5 (5-15); BUN 8 mg/dL (7-18); BUN/Creat Ratio 10.7 RATIO (10-20); Calcium,Total 8.8 mg/dL (8.5-10.1); Chloride 108 mmol/L (98-107); Cholesterol 240 mg/dL (200); Creatinine, Serum 0.74 mg/dL (0.55-1.02); EST Glomerular Filtration Rate 94 mL/min (>60); Est Glom Filt Rate - Afr Amer 113 mL/min (>60); Globulin 3.9 g/dL (2.2-4.2); Glucose 103 mg/dL (74-106); High Density Lipoprotein 77 mg/dL; Potassium 3.9 mmol/L (3.5-5.1); Protein, Total 7.2 g/dL (6.4-8.2); Sodium Level 139 mmol/L (136-145); Triglycerides 81 mg/dL; Very Low Density Lipoprotein 16 mg/dL (5-40)
== END | disposition home or self-care (01) ==
PROVIDERS: PCP Family Medicine; Referring Provider Family Medicine; Visit Provider Family Medicine
DX: D50.9 Iron deficiency anemia, unspecified (principal); E66.01 Morbid (severe) obesity due to excess calories; R73.02 Impaired glucose tolerance (oral)
CPT/HCPCS: 36415; 80053; 80061; 83036; 85025

== ENCOUNTER → 2023-10-14 | Outpatient (CLI) | payer OTHER, SELFPAY ==
[2023-10-14 17:29] LABS: Absolute Lymphocyte Count 2.36 X10^3/uL (0.83-4.51); Absolute Neutrophil Count 5.5 X10^3/uL (2.0-7.7); Basophil# 0.05 X10^3/uL; Basophil% 0.6 % (0-1); Eosinophil# 0.35 X10^3/uL; Eosinophils% 3.9 % (0-5); Hematocrit 43.2 % (37-47); Hemoglobin 13.8 g/dL (12.0-15.0); Lymphocyte # 2.36 X10^3/ul (0.83-4.51); Lymphocyte % 26.6 % (19-41); Mean Corp Hgb Conc 31.9 g/dL (32-36); Mean Corpuscular Hgb 29.4 pg (27.0-32.0); Mean Corpuscular Volume 91.9 fL (81-99); Mean Platelet Vol. 9.4 fl (6.2-12.0); Monocyte# 0.55 X10^3/uL; Monocyte% 6.2 % (0-10); NRBC Flagged by Analyzer 0 % (0-5); Neutrophil # 5.54 X10^3/uL (2.7-7.7); Neutrophil % 62.4 % (47-70); Platelet Count 397 K/mm3 (150-450); RBC Distribution Width CV 12.8 % (11.6-14.6); RBC Distribution Width SD 42.7 fl (35.1-43.9); White Blood Count 8.9 K/mm3 (4.4-11.0)
[2023-10-14 17:44] LABS: Vitamin D,25 Hydroxy 43.3 ng/mL
[2023-10-14 17:49] LABS: ALB/GLOB Ratio 0.8 RATIO (0.9-2.4); AST(SGOT) 20 U/L (15-37); Alanine Aminotransfer ALT/SGPT 31 U/L (13-56); Albumin, Serum 3.4 g/dL (3.2-5.0); Alkaline Phosphatase 126 U/L (45-117); Anion Gap 7 (5-15); BUN 11 mg/dL (7-18); BUN/Creat Ratio 12.7 RATIO (10-20); Calcium,Total 8.8 mg/dL (8.5-10.1); Chloride 104 mmol/L (98-107); Creatinine, Serum 0.86 mg/dL (0.55-1.02); EST Glomerular Filtration Rate 79 mL/min (>60); Est Glom Filt Rate - Afr Amer 95 mL/min (>60); Globulin 4.1 g/dL (2.2-4.2); Glucose 113 mg/dL (74-106); Potassium 3.8 mmol/L (3.5-5.1); Protein, Total 7.5 g/dL (6.4-8.2); Sodium Level 139 mmol/L (136-145)
[2023-10-14 17:57] LABS: Hemoglobin A1c 5.2 % (3.8-5.6)
== END | disposition home or self-care (01) ==
LOC: MFPLAB 14:59
PROVIDERS: PCP Family Medicine; Visit Provider Family Medicine
DX: K21.9 Gastro-esophageal reflux disease without esophagitis (principal); R73.02 Impaired glucose tolerance (oral); E55.9 Vitamin D deficiency, unspecified
CPT/HCPCS: 36415; 80053; 82306; 83036; 85025

== ENCOUNTER → 2024-07-05 | Outpatient (CLI) | payer OTHER, SELFPAY ==
[2024-07-05 12:18] LABS: Absolute Neutrophil Count 6.3 X10^3/uL (2.0-7.7); Basophil# 0.05 X10^3/uL; Basophil% 0.5 % (0-1); Eosinophil# 0.22 X10^3/uL; Eosinophils% 2.4 % (0-5); Hematocrit 40.8 % (37-47); Hemoglobin 13.3 g/dL (12.0-15.0); Lymphocyte % 22.8 % (19-41); Mean Corp Hgb Conc 32.6 g/dL (32-36); Mean Corpuscular Hgb 29.4 pg (27.0-32.0); Mean Corpuscular Volume 90.3 fL (81-99); Mean Platelet Vol. 9.5 fl (6.2-12.0); Monocyte# 0.54 X10^3/uL; Monocyte% 5.9 % (0-10); NRBC Flagged by Analyzer 0 % (0-5); Neutrophil # 6.26 X10^3/uL (2.7-7.7); Neutrophil % 68.1 % (47-70); Platelet Count 329 K/mm3 (150-450); RBC Distribution Width CV 13.1 % (11.6-14.6); RBC Distribution Width SD 43.1 fl (35.1-43.9); Red Blood Count 4.52 M/mm3 (4.2-5.4); White Blood Count 9.2 K/mm3 (4.4-11.0)
[2024-07-05 12:50] LABS: ALB/GLOB Ratio 0.8 RATIO (0.9-2.4); AST(SGOT) 18 U/L (15-37); Alanine Aminotransfer ALT/SGPT 31 U/L (13-56); Albumin, Serum 3.2 g/dL (3.2-5.0); Alkaline Phosphatase 113 U/L (45-117); Anion Gap 7 (5-15); BUN 11 mg/dL (7-18); BUN/Creat Ratio 13.3 RATIO (10-20); Calcium,Total 9.1 mg/dL (8.5-10.1); Chloride 106 mmol/L (98-107); Cholesterol 251 mg/dL (200); Creatinine, Serum 0.82 mg/dL (0.55-1.02); EST Glomerular Filtration Rate 83 mL/min (>60); Est Glom Filt Rate - Afr Amer 100 mL/min (>60); Globulin 3.9 g/dL (2.2-4.2); Glucose 122 mg/dL (74-106); Hemoglobin A1c 5.5 % (3.8-5.6); High Density Lipoprotein 74 mg/dL; Potassium 4.1 mmol/L (3.5-5.1); Protein, Total 7.1 g/dL (6.4-8.2); Sodium Level 136 mmol/L (136-145); Triglycerides 124 mg/dL; Very Low Density Lipoprotein 25 mg/dL (5-40)
[2024-07-05 12:55] LABS: Vitamin D,25 Hydroxy 41.6 ng/mL
== END | disposition home or self-care (01) ==
LOC: MFPLAB 09:56
PROVIDERS: PCP Family Medicine; Visit Provider Family Medicine
DX: R73.02 Impaired glucose tolerance (oral) (principal); E55.9 Vitamin D deficiency, unspecified; K21.9 Gastro-esophageal reflux disease without esophagitis
CPT/HCPCS: 36415; 80053; 80061; 82306; 83036; 85025

== ENCOUNTER → 2024-09-20 | Outpatient (CLI) | payer OTHER, SELFPAY ==
--- NOTE | 2024-09-20 07:24 | BI_ITS ---
MAMMOGRAPHY - BILATERAL SCREENING REASON FOR EXAM: Female, 39 years old. Routine annual screening examination. PERTINENT HISTORY: Non-contributory. TECHNIQUE: Digital bilateral breast reji (3D mammographic acquisition) in the CC and MLO projections. 2-D mediolateral oblique (MLO) and craniocaudad (CC) views of both breasts were obtained. CAD: Full Field Digital Mammography with Computer Added Detection was performed. COMPARISON: None. Baseline examination. FINDINGS: Breast Composition: There are scattered areas of fibroglandular density. There are no dominant masses or suspicious calcifications. Small bilateral axillary lymph nodes. No other significant abnormalities are identified. BI/SCRN MAMM (CAD)W/REJI BILAT IMPRESSION: Negative screening mammogram. Yearly followup mammogram recommended. (A) ASSESSMENT CATEGORY: BIRADS Category 2: Benign. A letter regarding these results will be sent to the patient by the facility within 30 days. Approximately 10% of breast cancers are not detected by mammography. A normal mammogram should not delay biopsy of a clinically suspicious abnormality. [id number] Electronically Signed: Maxwell Tierney MD at 9:33 EST ,
== END | disposition home or self-care (01) ==
PROVIDERS: PCP Family Medicine; Referring Provider Nurse Practitioner Family; Visit Provider Nurse Practitioner Family
DX: Z12.31 Encounter for screening mammogram for malignant neoplasm of breast (principal)
CPT/HCPCS: 77063; 77067

== ENCOUNTER 2024-12-29 11:28 | Outpatient (CLI) | payer BC, SELFPAY ==
[2024-12-29 12:54] LABS: ALB/GLOB Ratio 1.3 RATIO (0.9-2.4); AST(SGOT) 19 U/L (<=31); Alanine Aminotransfer ALT/SGPT 18 U/L (<=34); Alkaline Phosphatase 104 U/L (35-104); Anion Gap 12 (5-15); BUN 12 mg/dL (4-19); BUN/Creat Ratio 15.8 RATIO (10-20); Carbon Dioxide 22.5 mmol/L (22.0-29.0); Chloride 101 mmol/L (96-108); Creatinine, Serum 0.73 mg/dL (0.70-1.20); EST Glomerular Filtration Rate 109 (>60); Glucose 89 mg/dL (70-99); Potassium 4.1 mmol/L (3.3-5.1); Sodium Level 135 mmol/L (133-145); Vitamin D,25 Hydroxy 60.8 ng/mL (30-100)
[2024-12-29 13:07] LABS: Hemoglobin A1c 5.6 % (<=5.6)
[2024-12-29 13:41] LABS: Absolute Neutrophil Count 6.3 X10^3/uL (2.0-7.7); Basophil# 0.05 X10^3/uL; Basophil% 0.5 % (0-1); Eosinophil# 0.26 X10^3/uL; Eosinophils% 2.6 % (0-5); Hemoglobin 13.4 g/dL (12.0-15.0); Mean Corp Hgb Conc 33.5 g/dL (32-36); Mean Corpuscular Hgb 30.1 pg (27.0-32.0); Mean Corpuscular Volume 89.9 fL (81-99); Mean Platelet Vol. 9.5 fl (6.2-12.0); Monocyte# 0.66 X10^3/uL; Monocyte% 6.6 % (0-10); NRBC Flagged by Analyzer 0 % (0-5); Neutrophil # 6.29 X10^3/uL (2.7-7.7); Neutrophil % 62.9 % (47-70); Platelet Count 371 K/mm3 (150-450); RBC Distribution Width CV 12.7 % (11.6-14.6); RBC Distribution Width SD 41.7 fl (35.1-43.9); Red Blood Count 4.45 M/mm3 (4.2-5.4)
== END 2024-12-29 23:59 | disposition home or self-care (01) ==
LOC: MFPLAB 11:30
PROVIDERS: PCP Family Medicine; Referring Provider Family Medicine; Visit Provider Family Medicine
DX: R73.02 Impaired glucose tolerance (oral) (principal); K21.9 Gastro-esophageal reflux disease without esophagitis
CPT/HCPCS: 36415; 80053; 82306; 83036; 85025

== ENCOUNTER 2025-05-01 12:08 | Outpatient (CLI) | payer OTHER, SELFPAY ==
[2025-05-01 15:56] LABS: Hematocrit 40.0 % (37-47); Hemoglobin 13.2 g/dL (12.0-15.0); Immature Granulocytes Count 0.040 X10^3/uL (0.0-0.0); Mean Corp Hgb Conc 33.0 g/dL (32-36); Mean Corpuscular Volume 90.3 fL (81-99); Mean Platelet Vol. 9.8 fl (6.2-12.0); NRBC Flagged by Analyzer 0 % (0-5); Platelet Count 361 K/mm3 (150-450); RBC Distribution Width CV 12.8 % (11.6-14.6); RBC Distribution Width SD 42.1 fl (35.1-43.9); Red Blood Count 4.43 M/mm3 (4.2-5.4); White Blood Count 8.9 K/mm3 (4.4-11.0)
[2025-05-01 17:00] LABS: AST(SGOT) 24 U/L (<=31); Alanine Aminotransfer ALT/SGPT 33 U/L (<=34); Albumin, Serum 4.0 g/dL (3.5-5.0); Alkaline Phosphatase 110 U/L (35-104); Anion Gap 14 (5-15); BUN 10 mg/dL (4-19); BUN/Creat Ratio 14.6 RATIO (10-20); Calcium,Total 9.3 mg/dL (7.6-11.0); Carbon Dioxide 23.0 mmol/L (21.0-32.0); Chloride 100 mmol/L (98-108); Cholesterol 238 mg/dL (<=200); Globulin 3.0 g/dL (2.2-4.2); Glucose 91 mg/dL (70-99); Low Density Lipoprotein Calc. 142 mg/dL; Potassium 4.1 mmol/L (3.3-5.1); Triglycerides 125 mg/dL; Very Low Density Lipoprotein 25 mg/dL (5-40); Vitamin D,25 Hydroxy 69.5 ng/mL (30-100); cholesterol:hdl ratio screen 3.37
== END 2025-05-01 23:59 | disposition home or self-care (01) ==
LOC: MFPLAB 12:10
PROVIDERS: PCP Family Medicine; Referring Provider Family Medicine; Visit Provider Family Medicine
DX: R73.02 Impaired glucose tolerance (oral) (principal); E66.01 Morbid (severe) obesity due to excess calories; E55.9 Vitamin D deficiency, unspecified
CPT/HCPCS: 36415; 80053; 80061; 82306; 83036; 85025

== ENCOUNTER → 2025-08-15 | Outpatient (CLI) | payer OTHER, SELFPAY ==
[2025-08-15 18:14] LABS: Hematocrit 40.9 % (37-47); Hemoglobin 13.3 g/dL (12.0-15.0); Immature Granulocytes Count 0.010 X10^3/uL (0.0-0.0); Mean Corp Hgb Conc 32.5 g/dL (32-36); Mean Corpuscular Volume 89.9 fL (81-99); Mean Platelet Vol. 9.6 fl (6.2-12.0); NRBC Flagged by Analyzer 0 % (0-5); Platelet Count 373 K/mm3 (150-450); RBC Distribution Width CV 13.1 % (11.6-14.6); RBC Distribution Width SD 42.7 fl (35.1-43.9); Red Blood Count 4.55 M/mm3 (4.2-5.4); White Blood Count 9.1 K/mm3 (4.4-11.0)
[2025-08-15 18:47] LABS: AST(SGOT) 27 U/L (<=31); Alanine Aminotransfer ALT/SGPT 29 U/L (<=34); Albumin, Serum 4.0 g/dL (3.5-5.0); Alkaline Phosphatase 100 U/L (35-104); Anion Gap 14 (5-15); BUN 11 mg/dL (4-19); BUN/Creat Ratio 15.4 RATIO (10-20); Calcium,Total 9.3 mg/dL (7.6-11.0); Carbon Dioxide 23.2 mmol/L (21.0-32.0); Chloride 100 mmol/L (98-108); Globulin 2.9 g/dL (2.2-4.2); Glucose 123 mg/dL (70-99); Potassium 3.6 mmol/L (3.3-5.1); Vitamin D,25 Hydroxy 62.3 ng/mL (30-100)
== END | disposition home or self-care (01) ==
LOC: MFPLAB 15:34
PROVIDERS: PCP Family Medicine; Visit Provider Family Medicine
DX: K21.9 Gastro-esophageal reflux disease without esophagitis (principal); R73.02 Impaired glucose tolerance (oral); E55.9 Vitamin D deficiency, unspecified
CPT/HCPCS: 36415; 80053; 82306; 83036; 85025